=== PATIENT | male | born 1975 | race Caucasian/White ===

== ENCOUNTER 2021-12-25 19:17 | Emergency (ER) | payer OTHER, SELFPAY ==
--- NOTE | ~2021-12-25 | CT_ITS ---
EXAMINATION: CT CHEST, ABDOMEN AND PELVIS WITHOUT CONTRAST CLINICAL INFORMATION: Shortness of breath and significant right-sided pleural effusion noted on a radiograph from earlier today. COMPARISON: Chest radiograph done earlier today at 7:59 PM. TECHNIQUE: Multidetector volumetric imaging was performed from the thoracic inlet through the pubic symphysis without intravenous contrast. Sagittal and coronal reformatted images were obtained on the technologist's workstation. This CT examination was performed using dose optimization techniques as appropriate, variously including the following: *Automated exposure control *Adjustment of mA and/or kV according to patient size (this includes techniques or standardized protocols for targeted exams where dose is matched to indication/reason for exam; i.e. extremities or head) *Use of iterative reconstruction technique DLP: 445 and 811 mGy-cm FINDINGS: CHEST: Lung: Large consolidations with internal air bronchograms involving the entirety of the right lower, almost the majority of the right middle lobe and the inferior segments of the right upper lobe. There is an associated moderate-sized joint effusion which measures higher than simple fluid in attenuation. There are patchy airspace opacities in the left lower lobe. No left-sided pleural effusion. No pneumothorax. The central airways are patent. Mediastinum: Normal heart size with trace amount of pericardial fluid. Mediastinal and hilar lymphadenopathy. For instance, a shared services representative lymph node in the lower pretracheal region measuring approximately 1.8 x 1.5 cm. Epicardial/pericardial lymphadenopathy, for instance measuring 1.9 x 1.1 cm. Normal appearance of the thyroid gland. Pericardium/Pleura: As above, complex right pleural effusion. No pneumothorax. Chest Wall/Axilla: No lymphadenopathy by size criteria. ABDOMEN/PELVIS: Peritoneal Space: No free air or free fluid. Liver, Gallbladder, Biliary Tree: The liver is enlarged measuring 22 cm craniocaudally and there is decreased parenchymal attenuation suggesting hepatic steatosis. Otherwise, the liver is normal in shape without definite focal abnormalities. Normal appearance of the gallbladder. No biliary ductal dilatation. Pancreas: Mild peripancreatic fat stranding, more notable around the pancreatic head. The main pancreatic duct is nondilated. No discrete focal parenchymal abnormalities are identified. Spleen: Unremarkable. Adrenal Glands: Unremarkable. Kidneys and Ureters: Very subtle ill-defined hypoattenuation in the lower pole of the left kidney (14:38). No nephrolithiasis, hydronephrosis or perinephric fat stranding. Bladder: Unremarkable. Gastrointestinal Tract: The stomach and the small bowel are nondilated. Normal appendix. Submucosal fatty deposition throughout the colon is nonspecific and could be associated with patient body habitus. No pericolonic inflammatory changes or evidence of bowel obstruction. Abdominal Wall: Small fat-containing umbilical hernia. Lymphovascular Structures: Prominent periportal and peripancreatic lymph nodes. No lymphadenopathy by size criteria. The aorta is unremarkable. Pelvic Viscera: Unremarkable. Osseus Structures: Indeterminate increased sclerosis at the L5 greater than S1 vertebral bodies. CT/CT abdomen pelvis wo con IMPRESSION: 1. Extensive consolidation of the right lung with an associated moderate size complex joint effusion concerning for a parapneumonic effusion. Less extensive patchy airspace opacities in the left lung. 2. Peripancreatic fat stranding raising the possibility of edematous pancreatitis. Correlate with lipase/amylase levels. 3. Hepatomegaly and hepatic steatosis. 4. Subtle hypoattenuation in the lower pole of the left kidney. Recommend clinical correlation for pyelonephritis and if indicated evaluation with a targeted renal ultrasound. 5. Nonspecific increase in sclerosis of the L5 greater than S1 vertebral bodies. Recommend correlation with tenderness and pain.
--- NOTE | ~2021-12-25 | XR_ITS ---
EXAMINATION: XR CHEST CLINICAL INFORMATION: Dyspnea COMPARISON: Chest x-ray on 12/28/2017 TECHNIQUE: 2 views of the chest were obtained. FINDINGS: Large right pleural effusion with almost complete atelectasis of the lower lobe and middle lobe. No left pleural effusion. The cardiac silhouette is normal. XR/XR chest 2V IMPRESSION: Large right pleural effusion with adjacent atelectasis.
[2021-12-25 19:49] VITALS: BP 102/67; PULSE 108; RESP 18; TEMP 36.7; O2SAT 98; BMI 37.3
--- NOTE | 2021-12-25 19:54 | ECG_ITS ---
Test Reason : DIFFICULTY BREATHING Blood Pressure : / mmHG Vent. Rate : 111 BPM Atrial Rate : 111 BPM P-R Int : 134 ms QRS Dur : 100 ms QT Int : 320 ms P-R-T Axes : 049 038 027 degrees QTc Int : 435 ms Sinus tachycardia with Premature atrial complexes Otherwise normal ECG No previous ECGs available Referred By: Generic ED Physician Electronically Signed By:KAE ECHOLS
[2021-12-25 20:29] LABS: Hematocrit 34.1 % (42.0-52.0); Hemoglobin 11.3 g/dl (14.0-18.0); Mean Corpuscular HGB Conc 33.1 g/dl (31.0-36.0); Mean Corpuscular Hemoglobin 28.1 pg (27.0-33.0); Mean Corpuscular Volume 84.8 fL (80.0-98.0); Mean Platelet Volume 10.8 fL (9.4-12.4); Red Blood Count 4.02 X10*6/uL (4.60-5.80); White Blood Count 12.1 X10*3/uL (4.8-10.8)
[2021-12-25 20:53] LABS: B Type Natriuretic Peptide 114 pg/mL (<100); Troponin-I High Sensitivity < 3.5 ng/L (<3.5-35.0)
[2021-12-25 20:54] LABS: Anion Gap 20 (12-20); Blood Urea Nitrogen 51 mg/dL (9-16); Calcium 7.8 mg/dL (8.4-10.2); Carbon Dioxide 21 mmol/L (22-29); Chloride 95 mmol/L (96-108); Creatinine Clr Calc Pharmacy 49.1; Estimated Glomerular Filt Rate 28; Glucose Random 88 mg/dL (60-115); Potassium 4.5 mmol/L (3.3-5.1); Sodium 131 mmol/L (135-145)
[2021-12-25 20:55] LABS: Band Neutrophils Percent 6 % (3-5); Lymphocytes Absolute Manual 0.4 X10*3/uL (1.2-4.9); Lymphocytes Percent Manual 3 % (20-40); Neutrophils Absolute Manual 11.7 X10*3/uL (2.0-8.3); Neutrophils Percent Manual 91 % (45-73)
[2021-12-25 20:58] LABS: RBC Morphology NOTED
[2021-12-25 20:59] LABS: Microcytosis 1+ (5-14) /OIF
[2021-12-25 21:00] LABS: Platelet Estimate SLIGHTLY DECREASED (NORMAL); Platelet Morphology Comment NORMAL
[2021-12-25 21:01] LABS: Burr Cells 3+ (>5) /OIF; Schistocytes 1+ (0-2) /OIF; Toxic Granulation PRESENT; Toxic Vacuolation PRESENT
[2021-12-25 21:02] LABS: Platelet Count 255 X10*3/uL (160-400)
[2021-12-25 21:10] VITALS: BP 107/62; PULSE 119; RESP 16; TEMP 36.4; O2SAT 92
--- NOTE | 2021-12-25 21:32 | ED.SOB ---
HPI - SOB/Dyspnea General Chief Complaint: Dyspnea Stated Complaint: diff breathing Time Seen by Provider: 12/25/21 21:32 Source: patient Mode of arrival: ambulatory History of Present Illness HPI Narrative: 46-year-old male without significant past medical history states that he has had increasing feelings of fatigue with shortness of breath denies any fever, chills, sore throat, new cough, GI or symptoms. Patient also denies any recent travel, calf swelling and states that he had a COVID-19 test last night at [employer] in that it was negative. Patient states that he works every day and has not had a day off since October in feels ?run down?. Related Data Previous Rx's Medication Instructions Recorded doxycycline hyclate 100 mg capsule 100 mg PO BID 7 Days #14 cap 12/26/21 Allergies Allergy/AdvReac Type Severity Reaction Status Date / Time No Known Allergies Allergy Verified 12/25/21 19:49 [No Known Allergies*] Review of Systems Review of Systems: Pertinent positives and negatives as stated in HPI 10 point review of systems is otherwise negative. PMFSH Past Medical History Source: nursing notes reviewed Medical History Heroin addiction Social History Social History Advance Directives: No Advance Directives Information Provided: Yes Physical Exam Vital Signs: Vital Signs: Last Vital Signs Temp 97.6 F 12/25/21 21:10 Pulse 109 H 12/25/21 23:04 Resp 18 12/25/21 23:04 BP 92/55 L 12/25/21 23:04 Pulse Ox 91 L 12/25/21 23:04 BMI result Body Mass Index 37.3 VITAL SIGNS: Reviewed. GENERAL: Well developed, well nourished, in no acute distress. HEAD: Normocephalic/atraumatic EYES: PERRLA, EOMI EARS: Ext canals without abnormality OROPHARYNX: no oral lesions noted, posterior pharynx clear LUNGS: Good inspiratory effort, coarse rales decreased bibasilar, tachypnea. SpO2<92> CARDIOVASCULAR: Sinus tachycardia without noted murmurs, no JVD or lower extremity edema. ABDOMEN: Soft, non-tender, non-distended with bowel sounds. MUSCULOSKELETAL: No tenderness, deformities, or effusions noted on gross inspection. EXTREMITIES: No cyanosis, clubbing or edema. SKIN: Inspection of the skin reveals no rashes, but appears pale NEUROLOGIC: Alert and oriented x 4. Strength and sensation to light touch were grossly intact x 4. Course Course Course Narrative: 46-year-old male with stage history and clinical presentation concerning for possible lung mass versus pneumonia. 2134: I suspect infection. Patient treated with antibiotics and provided supplemental oxygen. Review of all investigations remains concerning for possible lung mass, patient has DARY. Plans for admission with patient refusal. Patient states he absolutely cannot stay and extensive risks and benefit discussion occurred with patient being counseled on the fact that he is requiring supplemental oxygen to maintain his breathing above 90%. Patient states that he ?feels better?, however it was explained to him that he runs the risk of having such low oxygen levels that he may . Patient states he does not care and that he will not . Patient is alert and oriented x4 and will be discharged home against medical advice. Patient acknowledges full understanding and states that he will return tomorrow. MDM - SOB/Dyspnea Lab Data Result diagrams: 12/25/21 20:22 12/25/21 20:22 Labs: Lab Results 12/25/21 12/25/21 12/25/21 Range/Units 20:22 20:22 20:22 WBC 12.1 H (4.8-10.8) X10*3/uL RBC 4.02 L (4.60-5.80) X10*6/uL Hgb 11.3 L (14.0-18.0) g/dl Hct 34.1 L (42.0-52.0) % MCV 84.8 (80.0-98.0) fL MCH 28.1 (27.0-33.0) pg MCHC 33.1 (31.0-36.0) g/dl RDW 14.0 (11.0-16.0) % Plt Count 255 (160-400) X10*3/uL MPV 10.8 (9.4-12.4) fL Immature Gran % (Auto) Cancelled Neut % (Auto) Cancelled Lymph % (Auto) Cancelled [place] % (Auto) Cancelled Eos % (Auto) Cancelled Baso % (Auto) Cancelled Lymph # (Auto) Cancelled [place] # (Auto) Cancelled Eos # (Auto) Cancelled Baso # (Auto) Cancelled Abs Immat Gran (auto) Cancelled Absolute Neuts (auto) Cancelled Absolute Nucleated RBC 0.000 (0.0-0.012) X10*3/uL Nucleated RBC % (auto) 0.0 (0.0-0.2) /100WBC Neutrophils % (Manual) 91 H (45-73) % Band Neutrophils % 6 H (3-5) % Lymphocytes % (Manual) 3 L (20-40) % Abs Neuts (Manual) 11.7 H (2.0-8.3) X10*3/uL Lymphocytes # (Manual) 0.4 L (1.2-4.9) X10*3/uL Toxic Granulation PRESENT Toxic Vacuolation PRESENT Platelet Estimate SLIGHTLY DECREASED (NORMAL) Plt Morphology Comment NORMAL RBC Morphology NOTED Microcytosis 1+ (5-14) /OIF Ade Cells 3+ (>5) /OIF Schistocytes 1+ (0-2) /OIF Sodium 131 L (135-145) mmol/L Potassium 4.5 (3.3-5.1) mmol/L Chloride 95 L (96-108) mmol/L Carbon Dioxide 21 L (22-29) mmol/L Anion Gap 20 (12-20) BUN 51 H (9-16) mg/dL Creatinine 2.44 H (0.5-1.4) mg/dL Estim Creat Clear Calc 49.1 Estimated GFR 28 Random Glucose 88 (60-115) mg/dL Lactic Acid (0.5-2.0) mmol/L Calcium 7.8 L (8.4-10.2) mg/dL Lactate Dehydrogenase 461 H (118-273) U/L Troponin I High Sens < 3.5 (<3.5-35.0) ng/L C-Reactive Protein 38.35 H (< or = 0.50) mg/dL B-Natriuretic Peptide 114 H (<100) pg/mL 12/25/21 Range/Units 21:23 WBC (4.8-10.8) X10*3/uL RBC (4.60-5.80) X10*6/uL Hgb (14.0-18.0) g/dl Hct (42.0-52.0) % MCV (80.0-98.0) fL MCH (27.0-33.0) pg MCHC (31.0-36.0) g/dl RDW (11.0-16.0) % Plt Count (160-400) X10*3/uL MPV (9.4-12.4) fL Immature Gran % (Auto) Neut % (Auto) Lymph % (Auto) [place] % (Auto) Eos % (Auto) Baso % (Auto) Lymph # (Auto) [place] # (Auto) Eos # (Auto) Baso # (Auto) Abs Immat Gran (auto) Absolute Neuts (auto) Absolute Nucleated RBC (0.0-0.012) X10*3/uL Nucleated RBC % (auto) (0.0-0.2) /100WBC Neutrophils % (Manual) (45-73) % Band Neutrophils % (3-5) % Lymphocytes % (Manual) (20-40) % Abs Neuts (Manual) (2.0-8.3) X10*3/uL Lymphocytes # (Manual) (1.2-4.9) X10*3/uL Toxic Granulation Toxic Vacuolation Platelet Estimate (NORMAL) Plt Morphology Comment RBC Morphology Microcytosis /OIF [place] Cells /OIF Schistocytes /OIF Sodium (135-145) mmol/L Potassium (3.3-5.1) mmol/L Chloride (96-108) mmol/L Carbon Dioxide (22-29) mmol/L Anion Gap (12-20) BUN (9-16) mg/dL Creatinine (0.5-1.4) mg/dL Estim Creat Clear Calc Estimated GFR Random Glucose (60-115) mg/dL Lactic Acid 1.2 (0.5-2.0) mmol/L Calcium (8.4-10.2) mg/dL Lactate Dehydrogenase (118-273) U/L Troponin I High Sens (<3.5-35.0) ng/L C-Reactive Protein (< or = 0.50) mg/dL B-Natriuretic Peptide (<100) pg/mL ECG Data Attestation: I personally reviewed and interpreted this ECG as follows: Prior ECG tracings: not available for review Interpretation: Sinus tachycardia, HR-111, PACs, no STEMI, NH/QRS/QTC are within normal limits. Discharge Plan Discharge Clinical Impression: SOB (shortness of breath), Pleural effusion, PNA (pneumonia) Patient Disposition: Left Against Medical Advice Instructions: Pleural Effusion (ED), Pneumonia (ED), Shortness of Breath (ED) Additional Instructions: 1. Resume any in all prescribed home medications. 2. Please return to the emergency room tomorrow regardless if you signed out against medical advice tonight. This is in the best interest for you and your health. Prescriptions: New doxycycline hyclate 100 mg capsule 100 mg PO BID 7 Days Qty: 14 0RF Referrals: Lashell Gilman MD [Physician] - 2 days Micah Childress MD [Physician] - 2 days Amarilis Lacey MD [Physician] - 2 days Carley Ambriz CNP [Nurse Practitioner] - 2 days Stand Alone Forms: Against Medical Advice
[2021-12-25 21:44] LABS: Lactic Acid 1.2 mmol/L (0.5-2.0)
[2021-12-25] MEDS: levoFLOXacin/D5W 750 MG/150 ML PIGGYBACK 100 MG IV (22:18)
[2021-12-25] MEDS: Albuterol Sulfate (0.083%) 2.5 MG/3 ML VIAL.NEB INHALE (22:29)
[2021-12-25 22:31] VITALS: PULSE 110; RESP 18; O2SAT 90
[2021-12-25 22:55] LABS: Influenza A PCR NEGATIVE (Negative); Influenza B PCR NEGATIVE (Negative); Resp Syncy Virus RNA Qual PCR NEGATIVE (Negative); SARS COV2 PCR INHOUSE POSITIVE (Negative)
[2021-12-25 23:04] VITALS: BP 92/55; PULSE 109; RESP 18; O2SAT 91
--- NOTE | 2021-12-25 23:23 | PM.IMHP ---
History of Present Illness Date of Service: 12/25/21 Chief Complaint: Shortness of breath 46-year-old male with a past medical history of opiate dependence on Suboxone presented to the hospital with a chief complaint of shortness of breath. Patient reported that since last Wednesday he has been having shortness of breath which has been gradually worsening especially on exertion. Reported that on Wednesday he felt chills and rigors followed by he felt tired and exhausted; and since then he has been having shortness of breath which has been gradually worsening. During the same. He also had cough and greenish to yellow sputum production. Mentioned he has been trying cough medicine at home with no significant improvement. He went to the urgent care yesterday who suggested him to go to the ER for further evaluation. Patient denies any recent travel or sick contacts. Denies any cough pain. Denies any travel outside [place] Mentions that he does not drink water well. He only drinks coffee in the morning and energy drinks. Especially over the past couple days. And a lately noted he has been increasingly thirsty. Denies any polyuria. Denies any chest pain or palpitations. Denies any GI symptoms. Review of all other systems is negative except mentioned above ER course: Per ER team patient noted to be short of breath; lungs fairly clear but significantly diminished on the right side; chest x-ray showed large right pleural effusion; CTA chest and CT abdomen Will or being ordered. Patient was saturating 91% on room air. Placed on supplemental oxygen. On labs noted to have DARY of 2.4. [facility] Medical History Heroin addiction Pertinent family history: Denies any significant family history concerning for heart disease or cancers. Social History Advance Directives: No Advance Directives Information Provided: Yes Meds Allergies Allergy/AdvReac Type Severity Reaction Status Date / Time No Known Allergies Allergy Verified 12/25/21 19:49 [No Known Allergies*] Active Medications: Current Medications Acetaminophen (Acetaminophen 325 Mg Tablet) 650 mg PO Q6H PRN PRN Reason: Pain, Mild (Pain Scale 1-3) Albuterol/Ipratropium (Albuterol/Iprat 2.5/0.5mg 3 Ml Ampul.Neb) 3 ml INHALE RQ4H PRN PRN Reason: Shortness of Breath/Wheezing Enoxaparin Sodium (Enoxaparin Sodium 40 Mg/0.4 Ml Syringe) 40 mg SUBCUT Q24H CAIT Piperacillin Sod/Tazobactam (Sod 3.375 gm/ Sodium Chloride) 50 mls @ 100 mls/hr IV Q6H CAIT Melatonin (Melatonin 3 Mg Tablet) 6 mg PO BEDTIME PRN PRN Reason: Insomnia Morphine Sulfate (Morphine Sulfate 4 Mg/Ml Cartridge) 1 mg IVPUSH Q4H PRN; Protocol PRN Reason: Pain, SOB Senna (Sennosides 8.6 Mg Tablet) 17.2 mg PO BEDTIME PRN PRN Reason: Constipation Sodium Chloride (0.9 % Sodium Chloride Flush 3 Ml Syringe) 3 ml IVFLUSH QSHIFT CAIT Physical Exam Vital Signs and Narrative: Vital Signs: Last Vital Signs Temp 97.6 F 12/25/21 21:10 Pulse 109 H 12/25/21 23:04 Resp 18 12/25/21 23:04 BP 92/55 L 12/25/21 23:04 Pulse Ox 91 L 12/25/21 23:04 BMI result Body Mass Index 37.3 Gen: Appears be in no acute distress . Breathing comfortably on room air. Able to finish sentences without any discomfort. HEENT: NCAT, Moist mucosa. Pulmonary: Clear breath sounds but significantly diminished on the right side in mid and lower lobes. CVS: Normal S1-S2 Abdomen: BS+, Soft, Nontender Extremities: Warm well perfused Neuro: Alert and awake. Grossly nonfocal Results Labs CBC and Chem 7: 12/25/21 20:22 12/25/21 20:22 Labs: Laboratory Results - last 24 hr 12/25/21 12/25/21 12/25/21 20:22 20:22 20:22 MCV 84.8 MCH 28.1 MCHC 33.1 RDW 14.0 Plt Count 255 MPV 10.8 Immature Gran % (Auto) Cancelled Neut % (Auto) Cancelled Lymph % (Auto) Cancelled [place] % (Auto) Cancelled Eos % (Auto) Cancelled Baso % (Auto) Cancelled Lymph # (Auto) Cancelled [place] # (Auto) Cancelled Eos # (Auto) Cancelled Baso # (Auto) Cancelled Abs Immat Gran (auto) Cancelled Absolute Neuts (auto) Cancelled Absolute Nucleated RBC 0.000 Nucleated RBC % (auto) 0.0 Neutrophils % (Manual) 91 H Band Neutrophils % 6 H Lymphocytes % (Manual) 3 L Abs Neuts (Manual) 11.7 H Lymphocytes # (Manual) 0.4 L Toxic Granulation PRESENT Toxic Vacuolation PRESENT Platelet Estimate SLIGHTLY DECREASED Plt Morphology Comment NORMAL RBC Morphology NOTED Microcytosis 1+ (5-14) [place] Cells 3+ (>5) Schistocytes 1+ (0-2) Anion Gap 20 Estim Creat Clear Calc 49.1 Estimated GFR 28 Random Glucose 88 Lactic Acid Calcium 7.8 L C-Reactive Protein 38.34 H B-Natriuretic Peptide 114 H 12/25/21 21:23 MCV MCH MCHC RDW Plt Count MPV Immature Gran % (Auto) Neut % (Auto) Lymph % (Auto) [place] % (Auto) Eos % (Auto) Baso % (Auto) Lymph # (Auto) [place] # (Auto) Eos # (Auto) Baso # (Auto) Abs Immat Gran (auto) Absolute Neuts (auto) Absolute Nucleated RBC Nucleated RBC % (auto) Neutrophils % (Manual) Band Neutrophils % Lymphocytes % (Manual) Abs Neuts (Manual) Lymphocytes # (Manual) Toxic Granulation Toxic Vacuolation Platelet Estimate Plt Morphology Comment RBC Morphology Microcytosis [place] Cells Schistocytes Anion Gap Estim Creat Clear Calc Estimated GFR Random Glucose Lactic Acid 1.2 Calcium C-Reactive Protein B-Natriuretic Peptide Imaging Radiologist's Impressions: Impressions Chest X-Ray 12/25/21 20:00 IMPRESSION: Large right pleural effusion with adjacent atelectasis. Assessment and Plan (1) SOB (shortness of breath): Status: Acute (2) Pleural effusion: Status: Acute (3) PNA (pneumonia): Status: Acute Plan 46-year-old male with no significant past medical history presented to the hospital with a chief complaint of shortness of breath/ cough/ sputum production. Noted to have pleural effusion likely in setting of pneumonia. Admitted for further management. Pleural effusion: Likely in setting of pneumonia. Patient reports cough and yellowish to green sputum production. Complains of dyspnea on exertion. Noted to have a large right pleural effusion. will request day hospitalist to follow up with IR consult for possible diagnostic/therapeutic tap in a.m. Patient currently saturating 91% on room air. Will place the patient on supplemental oxygen. Currently Not in respiratory distress. Will keep the patient on IV vancomycin and Zosyn empirically Id consult/Pulm consult proBNP within normal limits. Echocardiogram. EKG nonischemic initial troponin negative. Follow-up troponin pending CT chest/ abdomen pelvis- final read pending DARY: Patient's creatinine on presentation was 2.4. Patient does mention that he has not been hydrating enough. Will obtain urine lytes. Gentle IV fluids. nephrology follow-up History of opiate dependence: Patient on Suboxone. Addiction Medicine consult. DVT prophylaxis: Lovenox Code status: Full code Quality Stroke Does the patient have a stroke diagnosis?: No VTE Prior VTE?: No VTE Risk Level:: Medical - moderate - high VTE Device Contraindication: Treatment Not Indicated VTE Drug Contraindication: N/A - Med Ordered
[2021-12-25 23:46] LABS: Lactate Dehydrogenase 461 U/L (118-273)
[2021-12-25 23:51] LABS: C Reactive Protein 38.35 mg/dL (< or = 0.50)
--- NOTE | 2021-12-26 00:07 | PM.EVENT ---
Event Note Date of Service: 12/26/21 Event Note: AMA note: ER physician wanted to admit the patient for right-sided pleural effusion with mild hypoxia mona
[2021-12-26 00:13] LABS: Lipase < 4 U/L (8-78)
[2021-12-26] MEDS: Piperacillin Sodium/Tazobactam 2.25 GM in 0.9 % Sodium Chloride 50 ML IV (01:23)
--- NOTE | 2021-12-26 01:35 | PC.NURSE ---
I assumed nursing care of this pt upon his arrival to bed 15. The pt presented to the ED with c/o fatigue, cough, dyspnea. he states I feel like I did when I had pneumonia. He appears mildly pale, clammy, and mildly drowsy - a symptom he attributes to being someone who takes Methadone, prescribed. He is alert, oriented x 3, makes eye contact with Rn and is calm and cooperative. Respirations are non-labored, there is no cyanosis, he speaks in full sentences. His room air sat's are consistently 90%. His sat's improve to 95-97% with 2L nasal cannula. he denies chest pain. No nausea, No vomiting. He denies any change in his bowel or bladder patterns. He ambulates while in the ED independently and with steady gait. The pt was noted to have a significant pneumonia and was notified that he has this, as well as an DARY and hypoxia. Hre insisted that he could not stay in the hospital. I had a lengthy discussion with devin about the risks of leaving AMA, and I thoroughly explained to my best ability the findings on xray and bloodwork. 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 he insists, as well, that he will return tomorrow for further treatment. He agreed to allow Levaquin and Zosyn IV ABX complete prior to departure.. he signed AMA paperwork, witnesses as well.
== END 2021-12-26 01:43 | disposition left against medical advice (07) ==
PROVIDERS: Hospitalist; Emergency Provider Student in an Organized Health Care Education/Training Program
DX: U07.1 COVID-19 (principal); J12.82 Pneumonia due to coronavirus disease 2019; J91.8 Pleural effusion in other conditions classified elsewhere; R78.81 Bacteremia; R06.02 Shortness of breath; R00.0 Tachycardia, unspecified
CPT/HCPCS: 0241U; 36415; 71046; 71250; 74176; 80048; 83605; 83615; 83690; 83880; 84484; 85007; 85027; 86140; 87040; 87077; 87186; 87205; 93005; 94640; 96365; 99284; J1956; J2543

== ENCOUNTER 2021-12-26 12:34 | Inpatient (IN) | payer OTHER, SELFPAY ==
--- NOTE | ~2021-12-26 | NM_ITS ---
EXAMINATION: PULMONARY PERFUSION STUDY CLINICAL INFORMATION: COVID positive, dyspnea and elevated d-dimer. COMPARISON: Chest radiograph done earlier today at 2:17 PM. TECHNIQUE: The patient received 2.8 mCi Tc-99m MAA intravenously and a 6-view perfusion study was performed. FINDINGS: There is homogeneous distribution of activity in the left lung with no segmental perfusion defects, and a very small focal anatomic appearing defect adjacent to the cardiac silhouette. There is a large area of decreased perfusion involving the right lower and middle lobes, matching the regions of airspace opacities and moderate right pleural effusion noted on the chest radiograph from earlier today. NM/NM pul perfusion IMPRESSION: Large area of nonsegmental perfusion defect in the right lung corresponding to the airspace disease and pleural effusion noted on same day radiograph. This corresponds to a low probability (less or equal to 19%) for pulmonary emboli according to the updated PIOPED criteria. Homogeneous activity in the left lung.
--- NOTE | ~2021-12-26 | XR_ITS ---
EXAMINATION: XR CHEST CLINICAL INFORMATION: Dyspnea COMPARISON: Previous chest x-ray and chest CT 12/25/2020 TECHNIQUE: Frontal view of the chest was obtained. FINDINGS: The cardiac and mediastinal contours are stable. There is diffuse dense consolidation in the right lung sparing the right lung apex. This does not appear appreciably changed from yesterday's exam. The left lung is clear. There may be a small right pleural effusion. There is no left pleural effusion. There is no pneumothorax. There are mild degenerative changes of the spine. XR/XR chest 1V IMPRESSION: No change in dense consolidation in the right lung sparing the right lung apex and question small right pleural effusion from yesterday's exam.
[2021-12-26 12:48] VITALS: BP 101/61; PULSE 106; RESP 18; TEMP 36.8; O2SAT 93; BMI 32.1
--- NOTE | 2021-12-26 14:05 | ECG_ITS ---
Test Reason : dyspena Blood Pressure : / mmHG Vent. Rate : 101 BPM Atrial Rate : 101 BPM P-R Int : 136 ms QRS Dur : 102 ms QT Int : 338 ms P-R-T Axes : 059 037 030 degrees QTc Int : 438 ms Sinus tachycardia Otherwise normal ECG When compared with ECG of 25-DEC-2021 20:07, No significant changes seen Referred By: Tiffany Qiu Electronically Signed By:KAE ECHOLS
--- NOTE | 2021-12-26 14:07 | ED_ITS ---
HPI - General Adult General Chief complaint: General Medical Stated complaint: bacteria in blood Time Seen by Provider: 12/26/21 13:31 Source: patient Mode of arrival: ambulatory Limitations: no limitations History of Present Illness HPI narrative: seen yesterday plan was to be admitted but left AMA grew 2/[address] chest confirmed pneumonia. Was sent out with PO doxycycline. Called to come back to the ED. Refused IV vancomycin and IV zosyn while in the ED. Cr found to be 2.44 DARY. PCR confirmed COVID + he also was hypoxic in the ED per notes. Patient is unvaccinated. 1.? Extensive consolidation of the right lung with an associated moderate size complex joint effusion concerning for a parapneumonic effusion. Less extensive patchy airspace opacities in the left lung. ? 2.? Peripancreatic fat stranding raising the possibility of edematous pancreatitis. Correlate with lipase/amylase levels MD complaint: fatigue, shortness of breath, sweats Onset (ago): day(s) (WednesdayDecember 19) Location: chest Severity: moderate Quality: aching Pain Consistency: constant Relieving factors: none Exacerbating factors: other (patient reports feeling weak, short of breath, cough, fevers, chills, sweats, poor PO intake) Associated symptoms: cough, fever/chills, headaches, loss of appetite, malaise, nausea/vomiting, shortness of breath and weakness Treatments prior to arrival: other (took two doses of doxycycline) Related Data Home Medications Medication Instructions Recorded Confirmed buprenorphine 8 mg-naloxone 2 mg 2 strip SUBLINGUAL DAILY 12/26/21 12/26/21 sublingual film Allergies Allergy/AdvReac Type Severity Reaction Status Date / Time No Known Allergies Allergy Verified 12/25/21 19:49 [No Known Allergies*] Review of Systems Review of Systems: Constitutional : pos Fever, pos Chills, pos sweats ENT/Mouth : No sore throat, No Rhinorrhea, No Swallowing Difficulty Eyes: No Eye Pain, No Swelling, No Redness Cardiovascular : No Chest Pain, positive SOB, No Orthopnea, no Edema Respiratory : pos Cough, No Sputum, No Wheezing, positive dyspnea Gastrointestinal : pos Nausea, No Vomiting, No Diarrhea, No abdominal Pain, No Hematochezia, No Melena Genitourinary : No Dysuria, No Urinary Frequency, No Hematuria Musculoskeletal : No joint pain, No Myalgias Skin : No Skin Lesions, No rash Neuro : pos Weakness, No Numbness, No Dizziness, No Headache Psych : No Anxiety/Panic, No Depression Heme/Lymph: No Bruising, No Lymphadenopathy Endocrine : No Polyuria, No Polydipsia All other systems reviewed and are negative [facility] Past Medical History Attestation statement: The following information was validated with the patient. Medical History Heroin addiction Social History Social History (Updated 12/26/21 @ 14:31 by Tiffany Qiu DO) Household Members: Significant Other Housing: Apartment Do you presently have visiting nurse or other home services: No Alcohol intake: never Patient Tobacco Use Status: Never used Tobacco Use of substances other than those prescribed or required for medical reasons: Yes Substance Use Type: Former Substance User Substance Use Type Other:: suboxone Substance Use Frequency: Daily Substance Use Frequency Other:: Has not used in years Currently Displaying Signs/Symptoms of Drug Intoxication Withdrawal: No Any prior treatment program specific to substance use: No Have you been hit, kicked, punched, or otherwise hurt by someone within the past year? If so, by whom?: No Do you feel safe in your current relationship?: Yes Is there a partner from a previous relationship who is making you feel unsafe now?: No Are you made to feel afraid or neglected: No Advance Directives: Yes Advance Directives Information Provided: Yes Advance Directives on File: No Advance Directives Date on File: 12/26/21 Do you have thoughts of harming others: None Do you have a plan to hurt others: No Plan Recently lost weight without trying: No Eating poorly because of decreased appetite: Yes Nutrition Risks: Poor intake 0-25% >4 days Poor oral hygiene: No Physical Exam ED Vital Signs: Vital Signs - 24 hr 12/26/21 12:48 12/26/21 14:27 Temperature 98.2 F 98 F Pulse Rate 106 H 97 Respiratory Rate 18 18 Blood Pressure 101/61 128/71 Pulse Oximetry 93 95 BMI result Body Mass Index 32.1 Appearance: Alert. Oriented X3. Mild acute distress. Eyes: Pupils equal, round and reactive to light. ENT: Pharynx normal. Neck: Normal inspection. Neck supple. CVS: tachycardic heart rate and rhythm. Pulses normal. Respiratory: No respiratory distress. Breath sounds nvery dimished rales noted on R side Abdomen: Soft and non-tender. Skin: Skin warm and diaphoretic. pale skin color. Normal skin turgor. Extremities: No lower extremity edema. No calf ttp Neuro: Oriented X 3. No motor deficit. No sensory deficit. Course Course Course Narrative: ddimer elevated VQ scan ordered given DARY Medical Decision Making MDM Narrative Medical decision making narrative: 46 yo male with no PMH other than prior opiate use and he denies active use reports feeling weak, short of breath, malaise, cough fevers chills - dx with pneumonia / DARY yesterday started on doxycycline after leaving AMA PCR + for COVID, comes back after blood cultures 2/2 GPC in chains. At this time he has WBC count bandemia and bacteremia in addition to COVID + status (unvaccinated) today is day 8 of symptoms. Will need repeat labs, cultures, CXR, IV vancomycin/zosyn, monitor O2 to assess need for steroids. He agrees to stay at this time. Lab Data Result diagrams: 12/26/21 14:51 12/26/21 14:51 Labs: Lab Results 12/26/21 12/26/21 12/26/21 Range/Units 14:51 14:51 14:51 WBC 16.7 H (4.8-10.8) X10*3/uL RBC 3.93 L (4.60-5.80) X10*6/uL Hgb 11.1 L (14.0-18.0) g/dl Hct 33.3 L (42.0-52.0) % MCV 84.7 (80.0-98.0) fL MCH 28.2 (27.0-33.0) pg MCHC 33.3 (31.0-36.0) g/dl RDW 14.2 (11.0-16.0) % Plt Count 279 (160-400) X10*3/uL MPV 11.1 (9.4-12.4) fL Immature Gran % (Auto) Cancelled Neut % (Auto) Cancelled Lymph % (Auto) Cancelled [place] % (Auto) Cancelled Eos % (Auto) Cancelled Baso % (Auto) Cancelled Lymph # (Auto) Cancelled [place] # (Auto) Cancelled Eos # (Auto) Cancelled Baso # (Auto) Cancelled Abs Immat Gran (auto) Cancelled Absolute Neuts (auto) Cancelled Absolute Nucleated RBC 0.000 (0.0-0.012) X10*3/uL Nucleated RBC % (auto) 0.0 (0.0-0.2) /100WBC Neutrophils % (Manual) 87 H (45-73) % Band Neutrophils % 10 H (3-5) % Lymphocytes % (Manual) 3 L (20-40) % Abs Neuts (Manual) 16.2 H (2.0-8.3) X10*3/uL Lymphocytes # (Manual) 0.5 L (1.2-4.9) X10*3/uL Toxic Granulation PRESENT Toxic Vacuolation PRESENT Dohle Bodies PRESENT Platelet Estimate NORMAL (NORMAL) Plt Morphology Comment NORMAL RBC Morphology NOTED Polychromasia 1+ (0-2) /OIF Ade Cells 1+ (0-2) /OIF Schistocytes 1+ (0-2) /OIF PT (9.9-13.0) SEC INR (0.9-1.1) D-Dimer High Sensitivty NG/ML VBG pH (7.32-7.43) VBG pCO2 mmHg VBG pO2 mmHg VBG HCO3 (22-26) mmol/L VBG O2 Saturation % VBG Base Excess mmol/L Sodium 130 L (135-145) mmol/L Potassium 3.9 (3.3-5.1) mmol/L Chloride 96 (96-108) mmol/L Carbon Dioxide 20 L (22-29) mmol/L Anion Gap 18 (12-20) BUN 59 H (9-16) mg/dL Creatinine 2.44 H (0.5-1.4) mg/dL Estim Creat Clear Calc 45.5 Estimated GFR 28 Random Glucose 81 (60-115) mg/dL Lactic Acid (0.5-2.0) mmol/L Calcium 7.9 L (8.4-10.2) mg/dL Magnesium 2.6 (1.6-2.6) mg/dL Ferritin 4906 H (20-250) ng/mL Total Bilirubin 3.6 H (0.0-1.0) mg/dL Direct Bilirubin 3.0 H (0.0-0.5) mg/dL AST 102 H (5-37) U/L ALT 85 H (0-40) U/L Alkaline Phosphatase 208 H (39-117) U/L Lactate Dehydrogenase 486 H (118-273) U/L Total Creatine Kinase 56 (38-174) U/L C-Reactive Protein 37.96 H (< or = 0.50) mg/dL Total Protein 5.4 L (6.5-8.0) g/dL Albumin 2.6 L (3.5-5.0) g/dL Lipase 4 L (8-78) U/L 12/26/21 12/26/21 12/26/21 Range/Units 14:51 14:52 14:55 WBC (4.8-10.8) X10*3/uL RBC (4.60-5.80) X10*6/uL Hgb (14.0-18.0) g/dl Hct (42.0-52.0) % MCV (80.0-98.0) fL MCH (27.0-33.0) pg MCHC (31.0-36.0) g/dl RDW (11.0-16.0) % Plt Count (160-400) X10*3/uL MPV (9.4-12.4) fL Immature Gran % (Auto) Neut % (Auto) Lymph % (Auto) [place] % (Auto) Eos % (Auto) Baso % (Auto) Lymph # (Auto) [place] # (Auto) Eos # (Auto) Baso # (Auto) Abs Immat Gran (auto) Absolute Neuts (auto) Absolute Nucleated RBC (0.0-0.012) X10*3/uL Nucleated RBC % (auto) (0.0-0.2) /100WBC Neutrophils % (Manual) (45-73) % Band Neutrophils % (3-5) % Lymphocytes % (Manual) (20-40) % Abs Neuts (Manual) (2.0-8.3) X10*3/uL Lymphocytes # (Manual) (1.2-4.9) X10*3/uL Toxic Granulation Toxic Vacuolation Dohle Bodies Platelet Estimate (NORMAL) Plt Morphology Comment RBC Morphology Polychromasia /OIF Ade Cells /OIF Schistocytes /OIF PT 14.8 H (9.9-13.0) SEC INR 1.3 H (0.9-1.1) D-Dimer High Sensitivty 1401 NG/ML VBG pH 7.35 (7.32-7.43) VBG pCO2 37 mmHg VBG pO2 59 mmHg VBG HCO3 21 L (22-26) mmol/L VBG O2 Saturation 84.0 % VBG Base Excess -3.8 mmol/L Sodium (135-145) mmol/L Potassium (3.3-5.1) mmol/L Chloride (96-108) mmol/L Carbon Dioxide (22-29) mmol/L Anion Gap (12-20) BUN (9-16) mg/dL Creatinine (0.5-1.4) mg/dL Estim Creat Clear Calc Estimated GFR Random Glucose (60-115) mg/dL Lactic Acid 0.9 (0.5-2.0) mmol/L Calcium (8.4-10.2) mg/dL Magnesium (1.6-2.6) mg/dL Ferritin (20-250) ng/mL Total Bilirubin (0.0-1.0) mg/dL Direct Bilirubin (0.0-0.5) mg/dL AST (5-37) U/L ALT (0-40) U/L Alkaline Phosphatase (39-117) U/L Lactate Dehydrogenase (118-273) U/L Total Creatine Kinase (38-174) U/L C-Reactive Protein (< or = 0.50) mg/dL Total Protein (6.5-8.0) g/dL Albumin (3.5-5.0) g/dL Lipase (8-78) U/L ECG Data Attestation: I personally reviewed and interpreted this ECG as follows: Interpretation: Rate: 101 Rhythm: sinus tachycardia [place]: normal Normal P waves. Normal GRACE. Normal QRS complex. ST T wave : normal no JESSICA qTC: normal prior studies: no acute ischemia The study has been interpreted contemporaneously by me. . Discharge Plan Discharge Clinical Impression: Pleural effusion, Bacteremia, COVID-19 PNA (pneumonia) Qualifiers: Pneumonia type: due to unspecified organism Laterality: bilateral Lung location: unspecified part of lung Qualified Code(s): J18.9 - Pneumonia, unspecified organism Leukocytosis Qualifiers: Leukocytosis type: unspecified Qualified Code(s): D72.829 - Elevated white blood cell count, unspecified Patient Disposition: Admitted As Inpatient
[2021-12-26 14:27] VITALS: BP 128/71; PULSE 97; RESP 18; TEMP 36.6; O2SAT 95
--- NOTE | 2021-12-26 14:35 | PHA.MEDREC ---
Pharmacy Consult ? Medication Reconciliation Pharmacy has completed the medication reconciliation. Patient only take suboxone. Ariadna Layne, PharmD
[2021-12-26] MEDS: 0.9 % Sodium Chloride 500 ML IV (14:56)
[2021-12-26] MEDS: Piperacillin Sodium/Tazobactam 3.375 GM in 0.9 % Sodium Chloride 50 ML IV (15:00)
[2021-12-26 15:02] LABS: Hematocrit 33.3 % (42.0-52.0); Hemoglobin 11.1 g/dl (14.0-18.0); Mean Corpuscular HGB Conc 33.3 g/dl (31.0-36.0); Mean Corpuscular Hemoglobin 28.2 pg (27.0-33.0); Mean Corpuscular Volume 84.7 fL (80.0-98.0); Mean Platelet Volume 11.1 fL (9.4-12.4); Platelet Count 279 X10*3/uL (160-400); Red Blood Count 3.93 X10*6/uL (4.60-5.80); Red Cell Distribution Width 14.2 % (11.0-16.0); White Blood Count 16.7 X10*3/uL (4.8-10.8)
[2021-12-26 15:02] LABS: Venous Blood Gas Refer to POC result
[2021-12-26 15:02] LABS: VBG Base Excess -3.8 mmol/L; VBG HCO3 21 mmol/L (22-26); VBG pCO2 37 mmHg; VBG pH 7.35 (7.32-7.43); VBG pO2 59 mmHg
[2021-12-26 15:07] LABS: INTERNATIONAL NORM RATIO 1.3 (0.9-1.1); Prothrombin Time 14.8 SEC (9.9-13.0)
[2021-12-26 15:09] LABS: D Dimer High Sensitivity 1401 NG/ML
[2021-12-26 15:10] LABS: Lactic Acid 0.9 mmol/L (0.5-2.0)
[2021-12-26 15:25] LABS: Blood Urea Nitrogen 59 mg/dL (9-16); Total Protein 5.4 g/dL (6.5-8.0)
[2021-12-26 15:26] LABS: Alanine Aminotransferase 85 U/L (0-40); Albumin Level 2.6 g/dL (3.5-5.0); Alkaline Phosphatase 208 U/L (39-117); Anion Gap 18 (12-20); Aspartate Amino Transferase 102 U/L (5-37); Bilirubin Total 3.6 mg/dL (0.0-1.0); Calcium 7.9 mg/dL (8.4-10.2); Carbon Dioxide 20 mmol/L (22-29); Chloride 96 mmol/L (96-108); Creatinine Clr Calc Pharmacy 45.5; Estimated Glomerular Filt Rate 28; Glucose Random 81 mg/dL (60-115); Lipase 4 U/L (8-78); Magnesium 2.6 mg/dL (1.6-2.6); Potassium 3.9 mmol/L (3.3-5.1); Sodium 130 mmol/L (135-145)
[2021-12-26 15:28] LABS: Lactate Dehydrogenase 486 U/L (118-273)
[2021-12-26 15:36] LABS: C Reactive Protein 37.96 mg/dL (< or = 0.50)
[2021-12-26 16:34] LABS: Band Neutrophils Percent 10 % (3-5); Lymphocytes Absolute Manual 0.5 X10*3/uL (1.2-4.9); Lymphocytes Percent Manual 3 % (20-40); Neutrophils Absolute Manual 16.2 X10*3/uL (2.0-8.3); Neutrophils Percent Manual 87 % (45-73); RBC Morphology NOTED
[2021-12-26 16:35] LABS: Toxic Granulation PRESENT
[2021-12-26 16:36] LABS: Burr Cells 1+ (0-2) /OIF; Dohle Bodies PRESENT; Polychromasia 1+ (0-2) /OIF; Schistocytes 1+ (0-2) /OIF; Toxic Vacuolation PRESENT
[2021-12-26 16:37] LABS: Platelet Estimate NORMAL (NORMAL); Platelet Morphology Comment NORMAL
[2021-12-26] MEDS: vancomycin HCL 1,000 MG, vancomycin HCL 750 MG in 0.9 % Sodium Chloride 500 ML 267.5 MG IV (16:46)
--- NOTE | 2021-12-26 16:47 | PM.IMHP ---
History of Present Illness Date of Service: 12/26/21 Chief Complaint: Shortness of breath 46 year male with opioid dependence who who was seen in the ED yesterday with sob, fatigue that has been ongoing for nearly a week a had been seen at an urgent care clinic where he was found to have negaive covid. Work up here was noted for + covid by PCR, elevated WBC and CXR showed right sided pneumonia, lab work further showed DARY with creatinine of 2.44. Admission was advised and yet he left AMA sitting that he had a business that he had to attend to. He is not hypoxic. He returns to ED due to persitent symptoms and lab blood culture from the yesterday showing gram positive cocci bacteremia 2/. He's given vancomycin and this time when advised to stay, he's agreable. Creatine is unchaged at 2.44, WBC is higher from yesterday at 16 up from 12. No fever or chilss, +SOB. He is not vaccinated for covid Review of Systems Review of Systems: Gen: no fever Resp: +SOB, +cough cough CV: no chest, no [place], no leg edema GI: No n/v, no abd pain Neuro: No confusion Yes all other systems are reviewed and are negative [facility] Medical History Heroin addiction Social History (Updated 12/26/21 @ 14:31 by Tiffany Qiu DO) Household Members: Significant Other Housing: Apartment Do you presently have visiting nurse or other home services: No Alcohol intake: never Patient Tobacco Use Status: Never used Tobacco Use of substances other than those prescribed or required for medical reasons: Yes Substance Use Type: Former Substance User Substance Use Type Other:: suboxone Substance Use Frequency: Daily Substance Use Frequency Other:: Has not used in years Currently Displaying Signs/Symptoms of Drug Intoxication Withdrawal: No Any prior treatment program specific to substance use: No Have you been hit, kicked, punched, or otherwise hurt by someone within the past year? If so, by whom?: No Do you feel safe in your current relationship?: Yes Is there a partner from a previous relationship who is making you feel unsafe now?: No Are you made to feel afraid or neglected: No Advance Directives: Yes Advance Directives Information Provided: Yes Advance Directives on File: No Advance Directives Date on File: 12/26/21 Do you have thoughts of harming others: None Do you have a plan to hurt others: No Plan Recently lost weight without trying: No Eating poorly because of decreased appetite: Yes Nutrition Risks: Poor intake 0-25% >4 days Poor oral hygiene: No Meds Allergies Allergy/AdvReac Type Severity Reaction Status Date / Time No Known Allergies Allergy Verified 12/25/21 19:49 [No Known Allergies*] Active Medications: Current Medications Vancomycin HCl 1,000 mg/Vancomycin HCl 750 mg/ Sodium Chloride 535 mls @ 267.5 mls/hr IV ONCE ONE Stop: 12/26/21 16:59 Last Admin: 12/26/21 16:46 Dose: 267.5 mls/hr Documented by: Pharmacy Consult (Consult Rx Perform Med Rec) 1 each MISCELLANE ONCE PRN PRN Reason: Consult order Pharmacy Consult (Consult Rx Vancomycin Dosing) 1 each MISCELLANE DAILY PRN PRN Reason: Consult order Home Medications Medication Instructions Recorded Confirmed Last Taken Type buprenorphine 8 mg-naloxone 2 mg 2 strip SUBLINGUAL DAILY 12/26/21 12/26/21 12/26/21 History sublingual film Physical Exam Vital Signs and Narrative: Vital Signs: Last Vital Signs Temp 98 F 12/26/21 14:27 Pulse 97 12/26/21 14:27 Resp 18 12/26/21 14:27 BP 128/71 12/26/21 14:27 Pulse Ox 95 12/26/21 14:27 BMI result Body Mass Index 32.1 Const: Other: Constitutional: Alert, in no distress, overweight. Mental Status: Oriented to person, place and time. Eyes: Pupils are equal, round and reactive to light. Ear, Nose and Throat: Oropharynx clear, mucous membranes moist. Ears and nose without eformities. Trachea midline. Respiratory: Clear to auscultation. No wheezing, rales or rhonchi. Cardiovascular: S1 S2 regular. No murmurs, rubs or gallops. Gastrointestinal: Abdomen soft, non-tender, non-distended. Normal bowel sounds.? Neurologic: Cranial nerves II-XII grossly intact. No focal neurological deficits. Moves all extremities spontaneously.? Skin: No rashes or lesions.? Musculoskeletal: No cyanosis or clubbing. Psychiatric: Normal mood and affect? Results Labs CBC and Chem 7: 12/27/21 07:42 12/27/21 07:42 Labs: Laboratory Results - last 24 hr 12/26/21 12/26/21 12/26/21 14:51 14:51 14:51 MCV 84.7 MCH 28.2 MCHC 33.3 RDW 14.2 Plt Count 279 MPV 11.1 Immature Gran % (Auto) Cancelled Neut % (Auto) Cancelled Lymph % (Auto) Cancelled [place] % (Auto) Cancelled Eos % (Auto) Cancelled Baso % (Auto) Cancelled Lymph # (Auto) Cancelled [place] # (Auto) Cancelled Eos # (Auto) Cancelled Baso # (Auto) Cancelled Abs Immat Gran (auto) Cancelled Absolute Neuts (auto) Cancelled Absolute Nucleated RBC 0.000 Nucleated RBC % (auto) 0.0 Neutrophils % (Manual) 87 H Band Neutrophils % 10 H Lymphocytes % (Manual) 3 L Abs Neuts (Manual) 16.2 H Lymphocytes # (Manual) 0.5 L Toxic Granulation PRESENT Toxic Vacuolation PRESENT Dohle Bodies PRESENT Platelet Estimate NORMAL Plt Morphology Comment NORMAL RBC Morphology NOTED Polychromasia 1+ (0-2) Ade Cells 1+ (0-2) Schistocytes 1+ (0-2) PT INR D-Dimer High Sensitivty VBG pH VBG pCO2 VBG pO2 VBG HCO3 VBG O2 Saturation VBG Base Excess Anion Gap 18 Creatinine 2.44 H Estim Creat Clear Calc 45.5 Estimated GFR 28 Random Glucose 81 Lactic Acid Calcium 7.9 L Magnesium 2.6 Ferritin 5549 H Total Bilirubin 3.6 H Direct Bilirubin 3.0 H AST 102 H ALT 85 H Alkaline Phosphatase 208 H Lactate Dehydrogenase 486 H C-Reactive Protein 37.96 H Total Protein 5.4 L Albumin 2.6 L Lipase 4 L 12/26/21 12/26/21 12/26/21 14:51 14:52 14:55 MCV MCH MCHC RDW Plt Count MPV Immature Gran % (Auto) Neut % (Auto) Lymph % (Auto) [place] % (Auto) Eos % (Auto) Baso % (Auto) Lymph # (Auto) [place] # (Auto) Eos # (Auto) Baso # (Auto) Abs Immat Gran (auto) Absolute Neuts (auto) Absolute Nucleated RBC Nucleated RBC % (auto) Neutrophils % (Manual) Band Neutrophils % Lymphocytes % (Manual) Abs Neuts (Manual) Lymphocytes # (Manual) Toxic Granulation Toxic Vacuolation Dohle Bodies Platelet Estimate Plt Morphology Comment RBC Morphology Polychromasia Ade Cells Schistocytes PT 14.8 H INR 1.3 H D-Dimer High Sensitivty 1401 VBG pH 7.35 VBG pCO2 37 VBG pO2 59 VBG HCO3 21 L VBG O2 Saturation 84.0 VBG Base Excess -3.8 Anion Gap Creatinine Estim Creat Clear Calc Estimated GFR Random Glucose Lactic Acid 0.9 Calcium Magnesium Ferritin Total Bilirubin Direct Bilirubin AST ALT Alkaline Phosphatase Lactate Dehydrogenase C-Reactive Protein Total Protein Albumin Lipase Imaging Radiologist's Impressions: Impressions Chest X-Ray 12/26/21 14:17 IMPRESSION: No change in dense consolidation in the right lung sparing the right lung apex and question small right pleural effusion from yesterday's exam. Assessment and Plan (1) Bacteremia: Status: Acute (2) COVID-19: Status: Acute (3) Leukocytosis: Qualifiers: Leukocytosis type: unspecified Qualified Code(s): D72.829 - Elevated white blood cell count, unspecified Status: Acute (4) PNA (pneumonia): Qualifiers: Laterality: bilateral Lung location: unspecified part of lung Pneumonia type: due to unspecified organism Qualified Code(s): J18.9 - Pneumonia, unspecified organism Status: Acute (5) Pleural effusion: Status: Acute (6) SOB (shortness of breath): Status: Acute Plan 46 w/ history opioid dependence now on subxone here with CAP associated with gram positive coccii bacteremia, covid 19, and DARY, Sepsis 1/ Severe sepsis due to PNA and bacteremia 2/Gram positive cocci bacteremia -Empiric Vanco for MRSA -Ceftriaoxone to cover Strep -ID consult -Echo on Wednesday to rule out endocarditis -VQ scan is being done for high DDimer level,no hypoxia, I think secondary to covid 2/ Covid 19 PNA--hold Decadron unless hypoxic, No Remdesevir given kidney failure, Baricitinib if hypoxic and requires High flow 3/ DARY--likely ATN from speis, IVF and recheck and Nephro consult tomorrow 4/ Opioid dependence, continue Suboxne 5/DVT prophylaxis--Lovenox Quality Stroke Does the patient have a stroke diagnosis?: No VTE Prior VTE?: No VTE Risk Level:: Medical - moderate - high VTE Device Contraindication: Treatment Not Tolerated VTE Drug Contraindication: N/A - Med Ordered
[2021-12-26 17:33] LABS: Ferritin 4906 ng/mL (20-250)
[2021-12-26] MEDS: Enoxaparin Sodium 40 MG/0.4 ML SYRINGE SUBCUT (18:23)
[2021-12-26] MEDS: Sodium Chloride 0.45 % 1,000 ML 100 ML IVCONT (18:23)
[2021-12-26 20:05] VITALS: BMI 30.8
[2021-12-26 20:08] VITALS: BP 113/62; PULSE 112; RESP 20; TEMP 36.7; O2SAT 91
[2021-12-26] MEDS: 0.9 % Sodium Chloride Flush 3 ML SYRINGE IVFLUSH (20:33)
[2021-12-26] MEDS: guaiFENesin 100 MG/5 ML LIQUID PO (20:42)
[2021-12-26 23:11] VITALS: BP 100/54; PULSE 84; RESP 20; TEMP 37.3; O2SAT 90
[2021-12-27] MEDS: diphenhydrAMINE HCL 50 MG/ML VIAL 25 MG IVPUSH (02:54)
[2021-12-27 03:34] VITALS: BP 121/70; PULSE 105; RESP 18; TEMP 36.9; O2SAT 96
[2021-12-27] MEDS: Sodium Chloride 0.45 % 1,000 ML 100 ML IVCONT (04:27)
[2021-12-27 07:57] LABS: Hemoglobin 10.3 g/dl (14.0-18.0); Mean Corpuscular HGB Conc 33.2 g/dl (31.0-36.0); Mean Corpuscular Hemoglobin 28.1 pg (27.0-33.0); Mean Corpuscular Volume 84.7 fL (80.0-98.0); Platelet Count 270 X10*3/uL (160-400); Red Blood Count 3.66 X10*6/uL (4.60-5.80); Red Cell Distribution Width 14.5 % (11.0-16.0); White Blood Count 13.6 X10*3/uL (4.8-10.8)
[2021-12-27 07:58] VITALS: BP 107/56; PULSE 101; RESP 18; TEMP 37.4; O2SAT 92
[2021-12-27 08:20] LABS: Anion Gap 17 (12-20); Blood Urea Nitrogen 58 mg/dL (9-16); Calcium 7.6 mg/dL (8.4-10.2); Carbon Dioxide 18 mmol/L (22-29); Chloride 103 mmol/L (96-108); Creatinine Clr Calc Pharmacy 55.3; Estimated Glomerular Filt Rate 36; Glucose Random 85 mg/dL (60-115); Potassium 3.7 mmol/L (3.3-5.1); Sodium 134 mmol/L (135-145)
[2021-12-27] MEDS: Docusate Sodium 100 MG CAPSULE PO (08:59)
[2021-12-27] MEDS: cefTRIAXone sodium 1 GM in 0.9 % Sodium Chloride 50 ML IV (09:02)
--- NOTE | 2021-12-27 09:51 | P.PNIM_ITS ---
Subjective Subjective Date of Service: 12/27/21 Interval History: CC:F/u on sepsis, gram positive cocci bacteremia, sepsis, covid 19 Interval history: No sob, no fever Review of Systems no fever +sob Physical Exam Vital Signs: Vital Signs: Last Vital Signs Temp 99.4 F 12/27/21 07:58 Pulse 101 H 12/27/21 07:58 Resp 18 12/27/21 07:58 BP 107/56 L 12/27/21 07:58 Pulse Ox 92 12/27/21 07:58 BMI result Body Mass Index 30.8 Const: Other: General: AO X 3, no acute distress Resp: normal respiratroy effort, no acesory muscle use CVS: S1,S2,RRR GI: +BS, NT, no distention Skin: No rash Neuro: motor grossly intact Psych: appropriate affect Objective Data Active Medications Acetaminophen (Acetaminophen Supp 650 Mg Supp.Rect) 650 mg TN Q6H PRN PRN Reason: Pain, Mild (Pain Scale 1-3) Docusate Sodium (Docusate Sodium 100 Mg Capsule) 100 mg PO BID [facility] Last Admin: 12/27/21 08:59 Dose: 100 mg Documented by: DEEPALI Enoxaparin Sodium (Enoxaparin Sodium 40 Mg/0.4 Ml Syringe) 40 mg SUBCUT Q24H [facility] Last Admin: 12/26/21 18:23 Dose: 40 mg Documented by: TOYA Guaifenesin (Guaifenesin 100 Mg/5 Ml Liquid) 5 ml PO Q6H PRN PRN Reason: Cough Last Admin: 12/26/21 20:42 Dose: 5 ml Documented by: OSIRIS Sodium Chloride () 1,000 mls @ 100 mls/hr IVCONT .Q10H [facility] Last Admin: 12/27/21 04:27 Dose: 100 mls/hr Documented by: OSIRIS Ceftriaxone Sodium 1 gm/ (Sodium Chloride) 50 mls @ 100 mls/hr IV Q24H [facility] Last Admin: 12/27/21 09:02 Dose: 100 mls/hr Documented by: DEEPALI Vancomycin HCl 1,000 mg/ (Sodium Chloride) 270 mls @ 270 mls/hr IV Q24H [facility] Ondansetron HCl (Ondansetron Hcl 4 Mg/2 Ml Vial) 4 mg IVPUSH Q8H PRN PRN Reason: Nausea and Vomiting Pharmacy Consult (Consult Rx Perform Med Rec) 1 each MISCELLANE ONCE PRN PRN Reason: Consult order Pharmacy Consult (Consult Rx Vancomycin Dosing) 1 each MISCELLANE DAILY PRN PRN Reason: Consult order Pharmacy Consult (Consult Rx Vancomycin Dosing) 1 each MISCELLANE DAILY PRN PRN Reason: Consult order Sodium Chloride (0.9 % Sodium Chloride Flush 3 Ml Syringe) 3 ml IVFLUSH QSHIFT [facility] Last Admin: 12/27/21 09:02 Dose: Not Given Documented by: DEEPALI Non-Admin Reason: IV Running Labs CBC & Chem 7: 12/27/21 07:42 12/27/21 07:42 Labs: Laboratory Results - last 24 hr 12/26/21 12/26/21 12/26/21 14:51 14:51 14:51 MCV 84.7 MCH 28.2 MCHC 33.3 RDW 14.2 Plt Count 279 MPV 11.1 Immature Gran % (Auto) Cancelled Neut % (Auto) Cancelled Lymph % (Auto) Cancelled [place] % (Auto) Cancelled Eos % (Auto) Cancelled Baso % (Auto) Cancelled Lymph # (Auto) Cancelled [place] # (Auto) Cancelled Eos # (Auto) Cancelled Baso # (Auto) Cancelled Abs Immat Gran (auto) Cancelled Absolute Neuts (auto) Cancelled Absolute Nucleated RBC 0.000 Nucleated RBC % (auto) 0.0 Neutrophils % (Manual) 87 H Band Neutrophils % 10 H Lymphocytes % (Manual) 3 L Abs Neuts (Manual) 16.2 H Lymphocytes # (Manual) 0.5 L Toxic Granulation PRESENT Toxic Vacuolation PRESENT Dohle Bodies PRESENT Platelet Estimate NORMAL Plt Morphology Comment NORMAL RBC Morphology NOTED Polychromasia 1+ (0-2) Ade Cells 1+ (0-2) Schistocytes 1+ (0-2) PT INR D-Dimer High Sensitivty VBG pH VBG pCO2 VBG pO2 VBG HCO3 VBG O2 Saturation VBG Base Excess Anion Gap 18 Estim Creat Clear Calc 45.5 Estimated GFR 28 Random Glucose 81 Lactic Acid Calcium 7.9 L Magnesium 2.6 Ferritin 4906 H Total Bilirubin 3.6 H Direct Bilirubin 3.0 H AST 102 H ALT 85 H Alkaline Phosphatase 208 H Lactate Dehydrogenase 486 H Total Creatine Kinase 56 C-Reactive Protein 37.96 H Total Protein 5.4 L Albumin 2.6 L Lipase 4 L 12/26/21 12/26/21 12/26/21 14:51 14:52 14:55 MCV MCH MCHC RDW Plt Count MPV Immature Gran % (Auto) Neut % (Auto) Lymph % (Auto) [place] % (Auto) Eos % (Auto) Baso % (Auto) Lymph # (Auto) [place] # (Auto) Eos # (Auto) Baso # (Auto) Abs Immat Gran (auto) Absolute Neuts (auto) Absolute Nucleated RBC Nucleated RBC % (auto) Neutrophils % (Manual) Band Neutrophils % Lymphocytes % (Manual) Abs Neuts (Manual) Lymphocytes # (Manual) Toxic Granulation Toxic Vacuolation Dohle Bodies Platelet Estimate Plt Morphology Comment RBC Morphology Polychromasia Ade Cells Schistocytes PT 14.8 H INR 1.3 H D-Dimer High Sensitivty 1401 VBG pH 7.35 VBG pCO2 37 VBG pO2 59 VBG HCO3 21 L VBG O2 Saturation 84.0 VBG Base Excess -3.8 Anion Gap Estim Creat Clear Calc Estimated GFR Random Glucose Lactic Acid 0.9 Calcium Magnesium Ferritin Total Bilirubin Direct Bilirubin AST ALT Alkaline Phosphatase Lactate Dehydrogenase Total Creatine Kinase C-Reactive Protein Total Protein Albumin Lipase 12/27/21 12/27/21 07:42 07:42 MCV 84.7 MCH 28.1 MCHC 33.2 RDW 14.5 Plt Count 270 MPV 11.0 Immature Gran % (Auto) Neut % (Auto) Lymph % (Auto) [place] % (Auto) Eos % (Auto) Baso % (Auto) Lymph # (Auto) [place] # (Auto) Eos # (Auto) Baso # (Auto) Abs Immat Gran (auto) Absolute Neuts (auto) Absolute Nucleated RBC 0.000 Nucleated RBC % (auto) 0.0 Neutrophils % (Manual) Band Neutrophils % Lymphocytes % (Manual) Abs Neuts (Manual) Lymphocytes # (Manual) Toxic Granulation Toxic Vacuolation Dohle Bodies Platelet Estimate Plt Morphology Comment RBC Morphology Polychromasia [place] Cells Schistocytes PT INR D-Dimer High Sensitivty VBG pH VBG pCO2 VBG pO2 VBG HCO3 VBG O2 Saturation VBG Base Excess Anion Gap 17 Estim Creat Clear Calc 55.3 Estimated GFR 36 Random Glucose 85 Lactic Acid Calcium 7.6 L Magnesium Ferritin Total Bilirubin Direct Bilirubin AST ALT Alkaline Phosphatase Lactate Dehydrogenase Total Creatine Kinase C-Reactive Protein Total Protein Albumin Lipase Assessment and Plan (1) Bacteremia: Status: Acute (2) COVID-19: Status: Acute (3) Leukocytosis: Status: Acute (4) PNA (pneumonia): Status: Acute (5) Pleural effusion: Status: Acute (6) Sepsis: Status: Acute Plan 46 w/ history opioid dependence now on subxone here with CAP associated with gram positive coccii bacteremia, covid 19, and DARY, Sepsis 1/ Severe sepsis due to PNA and bacteremia, improving, WBC trending down 2/Gram positive cocci bacteremia -Empiric Vanco for MRSA -Ceftriaoxone to cover Strep -ID consult -Echo on Wednesday to rule out endocarditis -VQ scan finding correspond with PNA and therefore no PE 2/ Covid 19 PNA--add Decadron with O2 sat trending down, No Remdesevir given kidney failure, Baricitinib if hypoxic and requires High flow 3/ DARY--likely ATN from speis, IVF and recheck and Nephro consult today 4/ Opioid dependence, continue Suboxne 5/DVT prophylaxis--Lovenox Quality Stroke Does the patient have a stroke diagnosis?: No VTE Prior VTE?: No VTE Risk Level:: Medical - moderate - high VTE Device Contraindication: Treatment Not Tolerated VTE Drug Contraindication: N/A - Med Ordered
--- NOTE | 2021-12-27 10:12 | PHA.PROG ---
Admission Date/Time: December 26, 2021 17:01 Indication: bacteremia Weight in k.3 kg Adjusted body weight in K.3 kg [place] body weight in K.3 kg Obesity Dosing Indication % IBW: Serum Creatinine - Last 168 Hours 12/26/21 12/27/21 14:51 07:42 Creatinine 2.44 H 1.97 H Estimated CrCl and GFR - Last 168 Hours 12/26/21 12/27/21 14:51 07:42 Estim Creat Clear Calc 45.5 55.3 Estimated GFR 28 36 Vancomycin Loading Dose: 1750 mg x 1 given 12/26/21 @1646 Current Vancomycin Dosing Regimen: 1250 mg q24h Vancomycin Monitoring using AUC goal of 400 - 600 range with trough as surrogate marker predicted : predicted auc 578 Date and Time for next Vancomycin Level to be drawn: random level 12/28/21 @1400 Pharmacist Comments on Vancomycin Plan: Vancomycin dosing will take advantage of [employer] as a clinical decision support tool that uses Bayesian modeling to calculate individual patient's pharmacokinetic parameters and forecast the patient's drug concentration time course with the target goal AUC 24 range of 400 - 600 mg/L/hr.
[2021-12-27 11:26] VITALS: BP 119/63; PULSE 105; RESP 18; TEMP 37.1; O2SAT 95
--- NOTE | 2021-12-27 12:47 | MHC.CM.PN ---
pt left ama
--- NOTE | 2021-12-27 13:40 | PM.DS ---
DS: Providers Provider Date of Service: 12/27/21 Date of admission: 12/26/21 17:01 Primary care physician: Unknown Physician Consults: 12/26/21 17:03 Consult to Infectious Diseases Routine Consulting Provider: Amarilis Lacey Reason for consultation: bacteremia Has provider been notified: No 12/27/21 09:53 Consult to Nephrology Routine Consulting Provider: Milton Felix Reason for consultation: DARY Has provider been notified: No DS: Diagnosis Discharge Diagnosis (1) Bacteremia: Status: Acute (2) COVID-19: Status: Acute (3) Leukocytosis: Status: Acute (4) PNA (pneumonia): Status: Acute (5) Pleural effusion: Status: Acute (6) Sepsis: Status: Acute DS: Summary Hospital Course Hospital Course: He was admitted less than 24 hours ago for pneumonia, sepsis and bacteremia, DARY and was on IV Vanco and Ceftriaxone and decided to leave AMA, i advised him not to and he understand he's taking substantial risks and including the possibility of if not treated properly. His blood culture is showing streptococcus but no sensitivity. Oxygen is 95 on room air. No fever. As alternative to IV antibiotics, I am prescribing Levaquin 750 mg daily for 14 days. Advised to go see his doctor and to follow covid isolation protocol. Final diagnoses: 1/ Severe sepsis due to PNA and bacteremia, improving, WBC trending down 2/Streptococcus bacteremia 3/ Covid 19 PNA 4/ DARY--likely ATN 5/ Opioid dependence Time Spent with Patient Time attestation: Total time spent providing and/or coordinating discharge services: Discharge coordination time: Greater than 30 minutes Quality: Stroke Does the patient have a stroke diagnosis?: No Physical Exam Vital Signs: Vital Signs: Last Vital Signs Temp 98.7 F 12/27/21 11:26 Pulse 105 H 12/27/21 11:26 Resp 18 12/27/21 11:26 BP 119/63 12/27/21 11:26 Pulse Ox 95 12/27/21 11:26 BMI result Body Mass Index 30.8 DS: Data Data Completed and Pending Labs on day of discharge: Laboratory Results - last 24 hr 12/26/21 12/26/21 12/26/21 14:51 14:51 14:51 WBC 16.7 H RBC 3.93 L Hgb 11.1 L Hct 33.3 L MCV 84.7 MCH 28.2 MCHC 33.3 RDW 14.2 Plt Count 279 MPV 11.1 Immature Gran % (Auto) Cancelled Neut % (Auto) Cancelled Lymph % (Auto) Cancelled [place] % (Auto) Cancelled Eos % (Auto) Cancelled Baso % (Auto) Cancelled Lymph # (Auto) Cancelled [place] # (Auto) Cancelled Eos # (Auto) Cancelled Baso # (Auto) Cancelled Abs Immat Gran (auto) Cancelled Absolute Neuts (auto) Cancelled Absolute Nucleated RBC 0.000 Nucleated RBC % (auto) 0.0 Neutrophils % (Manual) 87 H Band Neutrophils % 10 H Lymphocytes % (Manual) 3 L Abs Neuts (Manual) 16.2 H Lymphocytes # (Manual) 0.5 L Toxic Granulation PRESENT Toxic Vacuolation PRESENT Dohle Bodies PRESENT Platelet Estimate NORMAL Plt Morphology Comment NORMAL RBC Morphology NOTED Polychromasia 1+ (0-2) Ade Cells 1+ (0-2) Schistocytes 1+ (0-2) PT INR D-Dimer High Sensitivty VBG pH VBG pCO2 VBG pO2 VBG HCO3 VBG O2 Saturation VBG Base Excess Sodium 130 L Potassium 3.9 Chloride 96 Carbon Dioxide 20 L Anion Gap 18 BUN 59 H Creatinine 2.44 H Estim Creat Clear Calc 45.5 Estimated GFR 28 Random Glucose 81 Lactic Acid Calcium 7.9 L Magnesium 2.6 Ferritin 4906 H Total Bilirubin 3.6 H Direct Bilirubin 3.0 H AST 102 H ALT 85 H Alkaline Phosphatase 208 H Lactate Dehydrogenase 486 H Total Creatine Kinase 56 C-Reactive Protein 37.96 H Total Protein 5.4 L Albumin 2.6 L Lipase 4 L 12/26/21 12/26/21 12/26/21 14:51 14:52 14:55 WBC RBC Hgb Hct MCV MCH MCHC RDW Plt Count MPV Immature Gran % (Auto) Neut % (Auto) Lymph % (Auto) [place] % (Auto) Eos % (Auto) Baso % (Auto) Lymph # (Auto) [place] # (Auto) Eos # (Auto) Baso # (Auto) Abs Immat Gran (auto) Absolute Neuts (auto) Absolute Nucleated RBC Nucleated RBC % (auto) Neutrophils % (Manual) Band Neutrophils % Lymphocytes % (Manual) Abs Neuts (Manual) Lymphocytes # (Manual) Toxic Granulation Toxic Vacuolation Dohle Bodies Platelet Estimate Plt Morphology Comment RBC Morphology Polychromasia Ade Cells Schistocytes PT 14.8 H INR 1.3 H D-Dimer High Sensitivty 1401 VBG pH 7.35 VBG pCO2 37 VBG pO2 59 VBG HCO3 21 L VBG O2 Saturation 84.0 VBG Base Excess -3.8 Sodium Potassium Chloride Carbon Dioxide Anion Gap BUN Creatinine Estim Creat Clear Calc Estimated GFR Random Glucose Lactic Acid 0.9 Calcium Magnesium Ferritin Total Bilirubin Direct Bilirubin AST ALT Alkaline Phosphatase Lactate Dehydrogenase Total Creatine Kinase C-Reactive Protein Total Protein Albumin Lipase 12/27/21 12/27/21 07:42 07:42 WBC 13.6 H RBC 3.66 L Hgb 10.3 L Hct 31.0 L MCV 84.7 MCH 28.1 MCHC 33.2 RDW 14.5 Plt Count 270 MPV 11.0 Immature Gran % (Auto) Neut % (Auto) Lymph % (Auto) [place] % (Auto) Eos % (Auto) Baso % (Auto) Lymph # (Auto) [place] # (Auto) Eos # (Auto) Baso # (Auto) Abs Immat Gran (auto) Absolute Neuts (auto) Absolute Nucleated RBC 0.000 Nucleated RBC % (auto) 0.0 Neutrophils % (Manual) Band Neutrophils % Lymphocytes % (Manual) Abs Neuts (Manual) Lymphocytes # (Manual) Toxic Granulation Toxic Vacuolation Dohle Bodies Platelet Estimate Plt Morphology Comment RBC Morphology Polychromasia Ade Cells Schistocytes PT INR D-Dimer High Sensitivty VBG pH VBG pCO2 VBG pO2 VBG HCO3 VBG O2 Saturation VBG Base Excess Sodium 134 L Potassium 3.7 Chloride 103 Carbon Dioxide 18 L Anion Gap 17 BUN 58 H Creatinine 1.97 H Estim Creat Clear Calc 55.3 Estimated GFR 36 Random Glucose 85 Lactic Acid Calcium 7.6 L Magnesium Ferritin Total Bilirubin Direct Bilirubin AST ALT Alkaline Phosphatase Lactate Dehydrogenase Total Creatine Kinase C-Reactive Protein Total Protein Albumin Lipase Discharge Plan Discharge Anticipated Discharge Date/Time: 12/27/21 12:24 Patient Disposition: Left Against Medical Advice Discharge Diagnosis: Pneumonnia and bacteremia with sepsis Referrals: Physician,Unknown J [Primary Care Provider] - 1 Week Discharge Medications: New levofloxacin 750 mg tablet 750 mg PO DAILY 14 Days Qty: 14 0RF Continued buprenorphine-naloxone 8-2 mg film 2 strip sublingual DAILY 0RF Discharge Orders: Discharge Order (Routine); Ordered 12/27/21 Ordered By: Saúl Parham Diet: advance to usual diet Activity on Discharge: As tolerated Care Plan Goals: full recovery from pneumonia Health Concerns: pneumonia, covid Plan of Treatment: Take Levaquin as directed and follow up with your Doctor in a week, Take all covid precaution inlcuding using mask per recommendation, you follow isolation protocol Assessment: as above
== END 2021-12-27 15:15 | disposition left against medical advice (07) | DRG 720 ==
LOC: HO.ED 14:37 → HO.EDOVER 17:10 → HO.IMC 18:50
PROVIDERS: Admitting Provider Internal Medicine; Emergency Provider Emergency Medicine; Visit Provider Internal Medicine
DX: A41.9 Sepsis, unspecified organism (principal); N17.0 Acute kidney failure with tubular necrosis; J12.82 Pneumonia due to coronavirus disease 2019; J91.8 Pleural effusion in other conditions classified elsewhere; R65.20 Severe sepsis without septic shock; U07.1 COVID-19; D72.829 Elevated white blood cell count, unspecified; F11.20 Opioid dependence, uncomplicated; Z79.899 Other long term (current) drug therapy
CPT/HCPCS: 36415; 71045; 78580; 80048; 80076; 82550; 82728; 82803; 83605; 83615; 83690; 83735; 85007; 85025; 85027; 85379; 85610; 86140; 87040; 93005; 96365; 96366; 96367; 99284; 99285; A9540; J0696; J1200; J1650; J2543; J3370

== ENCOUNTER 2021-12-30 22:56 | Inpatient (IN) | payer OTHER, SELFPAY ==
--- NOTE | ~2021-12-30 | CT_ITS ---
EXAMINATION: CT ABDOMEN AND PELVIS WITHOUT CONTRAST CLINICAL INFORMATION: Abdominal pain. COMPARISON: 12/25/2021 TECHNIQUE: Multidetector volumetric imaging was performed from the superior aspect of the liver through the pubic symphysis. Sagittal and coronal reformatted images were obtained on the technologist's workstation. This CT examination was performed using dose optimization techniques as appropriate, variously including the following: *Automated exposure control *Adjustment of mA and/or kV according to patient size (this includes techniques or standardized protocols for targeted exams where dose is matched to indication/reason for exam; i.e. extremities or head) *Use of iterative reconstruction technique DLP: 694 mGy-cm FINDINGS: LUNG BASES: There is marked persistent consolidation in the right lower and right middle lobes, though aeration is improved as compared to prior. Trace right pleural effusion. Left lung bases clear. LIVER, GALLBLADDER, AND BILIARY TREE: The liver is mildly enlarged, measuring 21 cm craniocaudal. The liver is normal in shape and attenuation. No focal hepatic lesion or biliary ductal dilatation is present. The gallbladder is unremarkable with no evidence of radiopaque gallstones, gallbladder wall thickening, or obvious pericholecystic inflammatory changes. PANCREAS: There is subtle peripancreatic fat stranding with extension around the adrenal gland. Pancreatic parenchyma is otherwise normal. No ductal dilatation. SPLEEN: Unremarkable. ADRENAL GLANDS: As noted above, the peripancreatic fat stranding and into the retroperitoneum around the adrenal glands bilaterally. Adrenal glands are otherwise unremarkable. KIDNEYS AND URETERS: Subtle focal hypoattenuation in the left lower renal pole measures 1.1 cm in diameter and is unchanged from prior. No recommended imaging follow up. The kidneys are otherwise normal in size, shape, and attenuation. No hydronephrosis, hydroureter, or calculi seen. No perinephric stranding. BLADDER: Unremarkable. GASTROINTESTINAL TRACT: Stomach, small bowel, and colon are normal in caliber. No bowel wall thickening or surrounding inflammatory changes. Submucosal fatty deposition is again seen within the colon and may be related to body habitus. Appendix is normal. No intraperitoneal free fluid or free air. ABDOMINAL WALL: No significant hernia is appreciated. LYMPH NODES: Normal. VASCULAR: Unremarkable. PELVIC VISCERA: Unremarkable. OSSEOUS STRUCTURES: Mild osteoarthritis in the hips. No acute osseous findings. Mild degenerative spondylosis in the lumbar spine. CT/CT abdomen pelvis wo con IMPRESSION: 1. Improving consolidation in the right lower and right middle lobes as compared to prior. 2. Mild peripancreatic fat stranding with involvement of the adjacent adrenal glands. This it is similar to prior and could correspond to acute pancreatitis. Recommend correlation with serum amylase and lipase. 3. Hepatomegaly.
--- NOTE | ~2021-12-30 | XR_ITS ---
EXAMINATION: XR CHEST CLINICAL INFORMATION: Right pneumonia. COMPARISON: 12/26/2021 TECHNIQUE: Frontal view of the chest was obtained. FINDINGS: There is improvement in the patchy airspace consolidation throughout the right lung with relative sparing of the right lung apex. This consolidation is most notable at the medial aspect of the right lung base. Left lung is relatively clear. No left-sided effusion or pneumothorax. Cardiac and mediastinal contours are unchanged. Pulmonary vasculature is normal. No acute osseous findings. XR/XR chest 1V IMPRESSION: Marked improvement in the right-sided airspace consolidation.
--- NOTE | ~2021-12-30 | US_ITS ---
EXAMINATION: US ABDOMEN LIMITED CLINICAL INFORMATION: Pancreatitis. COMPARISON: None TECHNIQUE: Real-time imaging of the right upper quadrant abdominal viscera. FINDINGS: PANCREAS: The pancreas is partially visualized with the head and the body of the pancreas is echogenic but unremarkable. The tail is obscured. LIVER: The liver is enlarged in size measuring 21.3 cm. The liver contour is normal. Parenchymal echogenicity is increased. No focal hepatic lesion. There is no intrahepatic biliary duct dilatation seen. GALLBLADDER: he gallbladder is physiologically distended without evidence of stones, sludge, polyps, wall thickening or pericholecystic fluid. COMMON BILE DUCT: Normal in caliber measuring 0.3 cm in diameter. RIGHT KIDNEY: Normal. No hydronephrosis. No renal calculi or focal parenchymal lesions. The kidney measures 12.4 cm in maximum dimension. FREE FLUID: None. US/US abdomen limited IMPRESSION: 12.4 mild hepatic steatosis without focal lesion. Echogenic body and the head of the pancreas. The tail is obscured by gas. The right kidney, and CBD appears unremarkable.
[2021-12-30 23:00] VITALS: BP 147/75; PULSE 62; RESP 22; TEMP 36.8; O2SAT 98; BMI 30.4
[2021-12-30 23:40] VITALS: BP 117/99; PULSE 62; RESP 28; TEMP 36.7; O2SAT 98
--- NOTE | 2021-12-30 23:43 | ED_ITS ---
HPI - General Adult General Chief complaint: General Medical Stated complaint: septic shock? Time Seen by Provider: 12/30/21 22:59 Source: patient Mode of arrival: ambulatory Limitations: no limitations History of Present Illness HPI narrative: Patient 46 years old was admitted here on 12/26 for pneumonias with Gram- positive bacteremia growing strep treated with IV vancomycin and Rocephin patient left against medical advise on 12/27 continue to take Levaquin comes back as nurse called him for post bacteremia to come back to the hospital. Patient although feeling better still coughing with patient blood culture done on 12/25 was positive for strep pneumonia repeat cultures on 12/26 was negative. Patient also complaining of swelling of the legs without any calf tenderness patient not using any IV drugs is clean for some time is on Suboxone program patient denies any fever or chills at this time Related Data Home Medications Medication Instructions Recorded Confirmed buprenorphine 8 mg-naloxone 2 mg 2 strip SUBLINGUAL DAILY 12/26/21 12/26/21 sublingual film Previous Rx's Medication Instructions Recorded levofloxacin 750 mg tablet 750 mg PO DAILY 14 Days #14 tab 12/27/21 Allergies Allergy/AdvReac Type Severity Reaction Status Date / Time No Known Allergies Allergy Verified 12/25/21 19:49 [No Known Allergies*] Review of Systems Review of Systems: Yes all other systems are reviewed and are negative PMFSH Past Medical History Medical History Heroin addiction Social History Social History Household Members: Significant Other Housing: Apartment Do you presently have visiting nurse or other home services: No Alcohol intake: never Patient Tobacco Use Status: Never used Tobacco Substance Use Type: Former Substance User Advance Directives: No Advance Directives Information Provided: Yes Advance Directives Date on File: 12/26/21 Physical Exam ED Vital Signs: Vital Signs - 24 hr 12/30/21 23:00 12/30/21 23:40 12/31/21 00:26 Temperature 98.2 F 98.0 F 98.2 F Pulse Rate 62 62 62 Respiratory Rate 22 H 28 H 16 Blood Pressure 147/75 H 117/99 H 131/62 Pulse Oximetry 98 98 96 BMI result Body Mass Index 30.4 Appearance: Alert. Oriented X3. No acute distress. Looks pale Eyes: PERRLA, No Nystagmus ENT: Pharynx normal. Oral Mucosa moist Neck: Normal inspection. Neck supple. CVS: Normal heart rate and rhythm. Pulses normal. Respiratory: No respiratory distress. Equal air entry bilateral, bilateral diffuse infiltrate right more than the left Abdomen: Soft and nontender. Bowel sounds are present, no mass palpable, no CVA tenderness Skin: Skin warm and dry. Normal skin color. Normal skin turgor. Extremities2+ lower extremity edema. No calf tenderness Neuro: Oriented X 3. No motor deficit. Medical Decision Making MDM Narrative Medical decision making narrative: Patient with right pneumonia with bacteremia with leukocytosis will start patient on Rocephin also will give vancomycin. Admit to medical floor Lab Data Lab results reviewed: Yes I reviewed the patient's lab results. Result diagrams: 12/30/21 23:38 12/30/21 23:38 Labs: Lab Results 12/30/21 12/30/21 12/30/21 Range/Units 23:38 23:38 23:38 WBC 22.5 H (4.8-10.8) X10*3/uL RBC 3.99 L (4.60-5.80) X10*6/uL Hgb 11.2 L (14.0-18.0) g/dl Hct 34.5 L (42.0-52.0) % MCV 86.5 (80.0-98.0) fL MCH 28.1 (27.0-33.0) pg MCHC 32.5 (31.0-36.0) g/dl RDW 14.5 (11.0-16.0) % Plt Count 501 H D (160-400) X10*3/uL MPV 10.2 (9.4-12.4) fL Immature Gran % (Auto) 3.4 H (0.0-0.4) % Neut % (Auto) 86.7 H (45-73) % Lymph % (Auto) 6.0 L (20-40) % [place] % (Auto) 3.7 (2-11) % Eos % (Auto) 0.0 (0-4) % Baso % (Auto) 0.2 (0-2) % Lymph # (Auto) 1.4 (1.2-4.9) X10*3/uL [place] # (Auto) 0.8 (0.1-1.2) X10*3/uL Eos # (Auto) 0.0 (0.0-0.4) X10*3/uL Baso # (Auto) 0.0 (0.0-0.2) X10*3/uL Abs Immat Gran (auto) 0.77 H (0.00-0.03) X10*3/uL Absolute Neuts (auto) 19.5 H (2.0-8.3) x10*3/uL Absolute Nucleated RBC 0.000 (0.0-0.012) X10*3/uL Nucleated RBC % (auto) 0.0 (0.0-0.2) /100WBC Sodium 138 (135-145) mmol/L Potassium 4.3 (3.3-5.1) mmol/L Chloride 103 (96-108) mmol/L Carbon Dioxide 22 (22-29) mmol/L Anion Gap 17 (12-20) BUN 26 H D (9-16) mg/dL Creatinine 1.22 (0.5-1.4) mg/dL Estim Creat Clear Calc 88.7 Estimated GFR > 60 Random Glucose 167 H D (60-115) mg/dL Lactic Acid 1.8 (0.5-2.0) mmol/L Calcium 8.4 D (8.4-10.2) mg/dL Total Bilirubin 1.0 (0.0-1.0) mg/dL AST 51 H (5-37) U/L ALT 91 H (0-40) U/L Alkaline Phosphatase 424 H D (39-117) U/L Total Protein 6.6 D (6.5-8.0) g/dL Albumin 3.1 L (3.5-5.0) g/dL Discharge Plan Discharge Clinical Impression: PNA (pneumonia), Bacteremia Patient Disposition: Admitted As Inpatient
[2021-12-30 23:44] LABS: MANUAL DIFF FLAG NO
[2021-12-30 23:49] LABS: Basophils Percent Auto 0.2 % (0-2); Hematocrit 34.5 % (42.0-52.0); Hemoglobin 11.2 g/dl (14.0-18.0); Imm Gran Abs Auto 0.77 X10*3/uL (0.00-0.03); Imm Gran Pct Auto 3.4 % (0.0-0.4); Lymphocytes Absolute Auto 1.4 X10*3/uL (1.2-4.9); Mean Corpuscular HGB Conc 32.5 g/dl (31.0-36.0); Mean Corpuscular Hemoglobin 28.1 pg (27.0-33.0); Mean Corpuscular Volume 86.5 fL (80.0-98.0); Mean Platelet Volume 10.2 fL (9.4-12.4); Monocytes Absolute Auto 0.8 X10*3/uL (0.1-1.2); Monocytes Percent Auto 3.7 % (2-11); Neutrophils Absolute Auto 19.5 x10*3/uL (2.0-8.3); Neutrophils Percent Auto 86.7 % (45-73); Platelet Count 501 X10*3/uL (160-400); Red Blood Count 3.99 X10*6/uL (4.60-5.80); Red Cell Distribution Width 14.5 % (11.0-16.0); White Blood Count 22.5 X10*3/uL (4.8-10.8)
[2021-12-31] LABS: Lactic Acid 1.8 mmol/L (0.5-2.0)
[2021-12-31 00:06] LABS: Alanine Aminotransferase 91 U/L (0-40); Albumin Level 3.1 g/dL (3.5-5.0); Alkaline Phosphatase 424 U/L (39-117); Anion Gap 17 (12-20); Aspartate Amino Transferase 51 U/L (5-37); Blood Urea Nitrogen 26 mg/dL (9-16); Calcium 8.4 mg/dL (8.4-10.2); Carbon Dioxide 22 mmol/L (22-29); Chloride 103 mmol/L (96-108); Creatinine Clr Calc Pharmacy 88.7; Estimated Glomerular Filt Rate > 60; Glucose Random 167 mg/dL (60-115); Potassium 4.3 mmol/L (3.3-5.1); Sodium 138 mmol/L (135-145); Total Protein 6.6 g/dL (6.5-8.0)
[2021-12-31] MEDS: 0.9 % Sodium Chloride 1,000 ML 999 ML IV (00:19)
[2021-12-31] MEDS: cefTRIAXone sodium 1 GM in 0.9 % Sodium Chloride 50 ML IV (00:19)
[2021-12-31 00:26] VITALS: BP 131/62; PULSE 62; RESP 16; TEMP 36.8; O2SAT 96
[2021-12-31] MEDS: Magnesium Hydrox/Alum Hydrox 30 ML ORAL.SUSP PO (01:29)
[2021-12-31] MEDS: Famotidine/PF 20 MG/2 ML VIAL IVPUSH (01:30)
--- NOTE | 2021-12-31 01:34 | PM.IMHP ---
History of Present Illness Date of Service: 12/31/21 Chief Complaint: bacteremia and abd pain This is a 46-year-old male with past medical history of opioid dependence, who was initially admitted to the hospital on 12/26 for bacteremia secondary to strep pneumonia and was found to have chest x-ray evidence of right-sided pneumonia, patient was admitted by left AMA onot being listened to and he was not having adequate pain control. Patient returned today as his had increased weakness as well as epigastric to left-sided abdominal pain that is 10/10, constant, radiating to the left of his abdomen as well as to the back, the pain has been worsened today, associated with low oral intake, nausea with no vomiting, no diarrhea constipation. Patient denies any fever but has chills, reports no alcohol abuse Patient otherwise denies any chest pain, shortness of breath has improved, cough is improved, denies any diarrhea or constipation, no urinary symptoms and no lower extremity edema On arrival to the ED patient was found to be hemodynamically stable with no significant abnormal vitals Labs are significant for WBC count of 22.5 (WBC increased from 13 on ) hemoglobin of 11.2, hematocrit of 34.5, BUN of 26, creatinine of 1.22 which is significantly improved from his recent admission, AST of 51, ALT of 91, alk-phos of 424, CT abdomen showing evidence of pancreatitis which was also seen on CT abdomen on the . Review of Systems Review of Systems: Yes all other systems are reviewed and are negative [facility] Medical History (Updated 12/31/21 @ 07:09 by Parris Day MD) Heroin addiction Family History (Updated 12/31/21 @ 07:07 by Parris Day MD) Other No family history of coronary artery disease Surgical History (Updated 12/31/21 @ 07:07 by Parris Day MD) No pertinent past surgical history Social History Household Members: Significant Other Housing: Apartment Do you presently have visiting nurse or other home services: No Alcohol intake: never Patient Tobacco Use Status: Never used Tobacco Substance Use Type: Former Substance User Advance Directives: No Advance Directives Information Provided: Yes Advance Directives Date on File: 12/26/21 Meds Allergies Allergy/AdvReac Type Severity Reaction Status Date / Time No Known Allergies Allergy Verified 12/25/21 19:49 [No Known Allergies*] Home Medications Medication Instructions Recorded Confirmed Last Taken Type buprenorphine 8 mg-naloxone 2 mg 2 strip SUBLINGUAL DAILY 12/26/21 12/31/21 12/30/21 History sublingual film Physical Exam Vital Signs and Narrative: Vital Signs: Last Vital Signs Temp 98.2 F 12/31/21 00:26 Pulse 62 12/31/21 00:26 Resp 16 12/31/21 00:26 BP 131/62 12/31/21 00:26 Pulse Ox 96 12/31/21 00:26 BMI result Body Mass Index 30.4 Const: Other: Patient withering in pain General: cooperative and no acute distress Orientation/consciousness: patient oriented x3 Eyes: General: appearance normal, both eyes and all related structures Pupils: Equal, round and reactive pupils present Resp: Effort & Inspection: normal respiratory effort Auscultation: clear to auscultation bilaterally Cardio: Rate: regular rate Rhythm: regular rhythm GI: Other: Very tender in the epigastric region, guarding Palpation (GI): Soft to palpation Auscultation: normal bowel sounds Skin: General skin exam: no rashes or lesions noted Neuro: General: patient oriented x3 Cranial nerves: Yes Equal, round and reactive pupils present Cognition (Neuro): normal cognition Extrem: General: Yes normal to inspection and Yes no pedal edema Results Labs CBC and Chem 7: 12/30/21 23:38 12/30/21 23:38 Labs: Laboratory Results - last 24 hr 12/30/21 12/30/21 12/30/21 23:38 23:38 23:38 MCV 86.5 MCH 28.1 MCHC 32.5 RDW 14.5 Plt Count 501 H D MPV 10.2 Immature Gran % (Auto) 3.4 H Neut % (Auto) 86.7 H Lymph % (Auto) 6.0 L [place] % (Auto) 3.7 Eos % (Auto) 0.0 Baso % (Auto) 0.2 Lymph # (Auto) 1.4 [place] # (Auto) 0.8 Eos # (Auto) 0.0 Baso # (Auto) 0.0 Abs Immat Gran (auto) 0.77 H Absolute Neuts (auto) 19.5 H Absolute Nucleated RBC 0.000 Nucleated RBC % (auto) 0.0 Anion Gap 17 Estim Creat Clear Calc 88.7 Estimated GFR > 60 Random Glucose 167 H D Lactic Acid 1.8 Calcium 8.4 D Total Bilirubin 1.0 AST 51 H ALT 91 H Alkaline Phosphatase 424 H D Total Protein 6.6 D Albumin 3.1 L Assessment and Plan (1) Sepsis: Status: Acute (2) Bacteremia: Status: Acute (3) Streptococcal pneumonia: Status: Acute (4) Acute pancreatitis: Status: Acute Plan 46-year-old male with past medical history of opioid use disorder presents to the hospital after leaving [facility] on the . He was being treated for bacteremia in the setting of pneumonia, blood cultures show strep pneumonia he is now also complaining of abdominal pain found to have pancreatitis # sepsis - has tachypnea, leukocytosis, afebrile - likely in the setting of bacteremia secondary to strep pneumonia - will treat with ceftriaxone given the culture sensitivity - infectious disease consulted # pneumonia - improvement of infiltrates on chest x-ray, at this time will continue ceftriaxone per sensitivity - monitor respiratory status # acute pancreatitis - has epigastric abdominal pain and CT evidence of pancreatitis, lipase normal, pending amylase - triglycerides normal, has elevated LFTs, - will start on aggressive IV fluids, pain control - will obtain abdominal ultrasound to rule out gallbladder disease # bacteremia - secondary to strep pneumonia - treatment as above DVT prophylaxis: Lovenox Quality Stroke Does the patient have a stroke diagnosis?: No VTE Prior VTE?: No VTE Risk Level:: Medical - moderate - high VTE Device Contraindication: Treatment Not Indicated VTE Drug Contraindication: N/A - Med Ordered
[2021-12-31 01:46] LABS: COVID-19 Test Negative (Negative)
[2021-12-31 02:02] VITALS: BP 132/60; PULSE 67; RESP 18; O2SAT 97
[2021-12-31] MEDS: Morphine Sulfate 4 MG/ML CARTRIDGE IVPUSH (02:18)
[2021-12-31] MEDS: ondansetron HCL 4 MG/2 ML VIAL IVPUSH (02:18)
[2021-12-31 02:28] LABS: Lipase 10 U/L (8-78); Triglycerides 250 mg/dL
[2021-12-31] MEDS: Lactated Ringers 1,000 ML 200 ML IVCONT ×2 (03:51→09:02)
[2021-12-31 05:23] VITALS: BP 126/69; PULSE 54; RESP 20; TEMP 36.9; O2SAT 100
--- NOTE | 2021-12-31 05:37 | PC.NURSE ---
Pt arrived in ED Overflow around 0507. Pt A&OX3. Very sleepy but easily arousable. Speech is clear and appropriate. LS-Right upper and lower lobes dim. Denies cough/sob. Pt on 2L NC. BS+. Pt on regular diet. C/o abdominal pain then fell asleep (snoring). PP+, no edema. Pt has IV fluids infusing as ordered. Will continue to monitor.
--- NOTE | 2021-12-31 06:58 | PHA.MEDREC ---
Pharmacy Consult ? Medication Reconciliation Pharmacy has reviewed the medication reconciliation completed by Van. Med rec completed by nd 12/25/21 prior to last admission. No remarkable issues. Ariadna Layne, [place]
[2021-12-31] MEDS: HYDROmorphone HCl 0.5 MG/0.5 ML SYRINGE IVPUSH (07:13)
[2021-12-31 07:24] LABS: MANUAL DIFF FLAG NO
[2021-12-31 07:28] LABS: Basophils Percent Auto 0.1 % (0-2); Eosinophils Percent Auto 0.3 % (0-4); Hematocrit 29.9 % (42.0-52.0); Hemoglobin 9.4 g/dl (14.0-18.0); Imm Gran Abs Auto 0.28 X10*3/uL (0.00-0.03); Lymphocytes Absolute Auto 1.6 X10*3/uL (1.2-4.9); Lymphocytes Percent Auto 11.3 % (20-40); Mean Corpuscular HGB Conc 31.4 g/dl (31.0-36.0); Mean Corpuscular Hemoglobin 27.8 pg (27.0-33.0); Mean Corpuscular Volume 88.5 fL (80.0-98.0); Mean Platelet Volume 10.4 fL (9.4-12.4); Monocytes Absolute Auto 0.8 X10*3/uL (0.1-1.2); Monocytes Percent Auto 5.7 % (2-11); Neutrophils Absolute Auto 11.2 x10*3/uL (2.0-8.3); Neutrophils Percent Auto 80.6 % (45-73); Platelet Count 328 X10*3/uL (160-400); Red Blood Count 3.38 X10*6/uL (4.60-5.80); Red Cell Distribution Width 14.6 % (11.0-16.0); White Blood Count 13.9 X10*3/uL (4.8-10.8)
[2021-12-31 07:59] LABS: Anion Gap 13 (12-20); Blood Urea Nitrogen 21 mg/dL (9-16); Calcium 7.7 mg/dL (8.4-10.2); Carbon Dioxide 23 mmol/L (22-29); Chloride 107 mmol/L (96-108); Creatinine Clr Calc Pharmacy 116.4; Estimated Glomerular Filt Rate > 60; Glucose Random 122 mg/dL (60-115); Sodium 139 mmol/L (135-145)
[2021-12-31 08:04] LABS: Amylase 31 U/L (28-100)
[2021-12-31] MEDS: Enoxaparin Sodium 40 MG/0.4 ML SYRINGE SUBCUT (09:01)
[2021-12-31 10:07] VITALS: BP 139/66; PULSE 64; RESP 16; O2SAT 98
--- NOTE | 2021-12-31 10:52 | PC.NURSE ---
Pt resting in hospital bed intermitently snoring. When awoken pt c/o pain but falls asleep easily. offering no other complaints. Medicated per DEC. Belongings and callbell within reach.
[2021-12-31] MEDS: Buprenorphine/Naloxone 8/2 mg FILM 1 FILM SUBLINGUAL ×2 (11:38→15:03)
--- NOTE | 2021-12-31 12:23 | MHC.CM.PN ---
met with pt in ed pt lives with kwasi he goes to [facility] for suboxone he is not vaccinated he recently left [facility] 12/27 dc plan tbd
[2021-12-31 14:01] VITALS: BP 121/60; PULSE 57; RESP 14; O2SAT 95
--- NOTE | 2021-12-31 14:04 | HO.ADDICT_ITS ---
History of Present Illness Date of Service: 12/31/2021 Chief Complaint: Bacteremia, Pancreatitis Reason for Consult: Opioid use disorder Requesting physician: Emily Montes Sources of Information: patient interviewed and chart reviewed HPI Narrative: Patient is a 46 year old male with history of OUD currently medically admitted with pancreatitis and bacteremia. Per chart review patient self initiated discharge last week citing worsening pain and inadequate pain relief. Patient seen in ED overflow room 11. Awake, alert, somewhat engaged in interview. Reporting abdominal pain Discussed OUD, patient reports he has been in recovery for many years and has been on suboxone for >10years. Denies any opioid use. Denies any cocaine, alcohol or benzo use. Reports that he takes suboxone as prescribed, and last dose was last evening. Denies any issues with recovery. Review of Systems Constitutional: Reports as per HPI Diagnostics Vital Signs (24Hr): Vital Signs - 24 hr 12/30/21 23:00 12/30/21 23:40 12/31/21 00:26 Temperature 98.2 F 98.0 F 98.2 F Pulse Rate 62 62 62 Respiratory Rate 22 H 28 H 16 Blood Pressure 147/75 H 117/99 H 131/62 Pulse Oximetry 98 98 96 12/31/21 02:02 12/31/21 05:23 12/31/21 10:07 Temperature 98.4 F Pulse Rate 67 54 64 Respiratory Rate 18 20 16 Blood Pressure 132/60 126/69 139/66 Pulse Oximetry 97 100 98 12/31/21 14:01 Temperature Pulse Rate 57 Respiratory Rate 14 Blood Pressure 121/60 Pulse Oximetry 95 BMI result Body Mass Index 30.4 Labs Results: 12/31/21 07:00 12/31/21 07:00 Labs: Laboratory Results - last 48 hr 12/30/21 12/30/21 12/30/21 23:38 23:38 23:38 WBC 22.5 H RBC 3.99 L Hgb 11.2 L Hct 34.5 L MCV 86.5 MCH 28.1 MCHC 32.5 RDW 14.5 Plt Count 501 H D MPV 10.2 Immature Gran % (Auto) 3.4 H Neut % (Auto) 86.7 H Lymph % (Auto) 6.0 L Victoria % (Auto) 3.7 Eos % (Auto) 0.0 Baso % (Auto) 0.2 Lymph # (Auto) 1.4 [place] # (Auto) 0.8 Eos # (Auto) 0.0 Baso # (Auto) 0.0 Abs Immat Gran (auto) 0.77 H Absolute Neuts (auto) 19.5 H Absolute Nucleated RBC 0.000 Nucleated RBC % (auto) 0.0 Sodium 138 Potassium 4.3 Chloride 103 Carbon Dioxide 22 Anion Gap 17 BUN 26 H D Creatinine 1.22 Estim Creat Clear Calc 88.7 Estimated GFR > 60 Random Glucose 167 H D Lactic Acid 1.8 Calcium 8.4 D Total Bilirubin 1.0 AST 51 H ALT 91 H Alkaline Phosphatase 424 H D Total Protein 6.6 D Albumin 3.1 L Triglycerides 250 Amylase Lipase 10 COVID-19 (KB) COVID-19 Clin Com 12/31/21 12/31/21 12/31/21 01:24 07:00 07:00 WBC 13.9 H RBC 3.38 L Hgb 9.4 L Hct 29.9 L MCV 88.5 MCH 27.8 MCHC 31.4 RDW 14.6 Plt Count 328 D MPV 10.4 Immature Gran % (Auto) 2.0 H Neut % (Auto) 80.6 H Lymph % (Auto) 11.3 L Victoria % (Auto) 5.7 Eos % (Auto) 0.3 Baso % (Auto) 0.1 Lymph # (Auto) 1.6 Victoria # (Auto) 0.8 Eos # (Auto) 0.0 Baso # (Auto) 0.0 Abs Immat Gran (auto) 0.28 H Absolute Neuts (auto) 11.2 H Absolute Nucleated RBC 0.000 Nucleated RBC % (auto) 0.0 Sodium 139 Potassium 4.0 Chloride 107 Carbon Dioxide 23 Anion Gap 13 BUN 21 H Creatinine 0.93 Estim Creat Clear Calc 116.4 Estimated GFR > 60 Random Glucose 122 H Lactic Acid Calcium 7.7 L D Total Bilirubin AST ALT Alkaline Phosphatase Total Protein Albumin Triglycerides Amylase 31 Lipase COVID-19 (KB) Negative COVID-19 Clin Com See Note 12/31/21 07:01 WBC RBC Hgb Hct MCV MCH MCHC RDW Plt Count MPV Immature Gran % (Auto) Neut % (Auto) Lymph % (Auto) Victoria % (Auto) Eos % (Auto) Baso % (Auto) Lymph # (Auto) [place] # (Auto) Eos # (Auto) Baso # (Auto) Abs Immat Gran (auto) Absolute Neuts (auto) Absolute Nucleated RBC Nucleated RBC % (auto) Sodium Potassium Chloride Carbon Dioxide Anion Gap BUN Creatinine Estim Creat Clear Calc Estimated GFR Random Glucose Lactic Acid Calcium Total Bilirubin AST ALT Alkaline Phosphatase Total Protein Albumin Triglycerides Amylase Cancelled Lipase COVID-19 (KB) COVID-19 Clin Com Imaging Radiology Impressions: ITS Impressions Chest X-Ray 12/31/21 01:15 IMPRESSION: Marked improvement in the right-sided airspace consolidation. Abdomen/Pelvis CT 12/31/21 03:35 IMPRESSION: 1. Improving consolidation in the right lower and right middle lobes as compared to prior. 2. Mild peripancreatic fat stranding with involvement of the adjacent adrenal glands. This it is similar to prior and could correspond to acute pancreatitis. Recommend correlation with serum amylase and lipase. 3. Hepatomegaly. Abdomen Ultrasound 12/31/21 08:15 IMPRESSION: 12.4 mild hepatic steatosis without focal lesion. Echogenic body and the head of the pancreas. The tail is obscured by gas. The right kidney, and CBD appears unremarkable. Mental Status Exam Mental Status Exam Patient Appearance: Appropriate (gramacing) Level of Consciousness: Awake Patient Behavior: Appropriate Affect Description: Blunted Speech Pattern: Clear Medications Medications Current Medications Acetaminophen (Acetaminophen 325 Mg Tablet) 650 mg PO Q6H PRN PRN Reason: Pain, Mild (Pain Scale 1-3) Buprenorphine/Naloxone (Buprenorphine/Naloxone 8/2 Mg Film) 1 film SUBLINGUAL BID@0900,1500 [facility] Last Admin: 12/31/21 11:38 Dose: 1 film Documented by: Enoxaparin Sodium (Enoxaparin Sodium 40 Mg/0.4 Ml Syringe) 40 mg SUBCUT Q24H [facility] Last Admin: 12/31/21 09:01 Dose: 40 mg Documented by: Hydromorphone HCl (Hydromorphone Hcl 0.5 Mg/0.5 Ml Syringe) 1 mg IVPUSH Q4H PRN; Protocol PRN Reason: Pain, Severe (Pain Scale 7-10) Ceftriaxone Sodium 1 gm/ (Sodium Chloride) 50 mls @ 100 mls/hr IV Q24H [facility] Lactated Ringer's (Lr) 1,000 mls @ 125 mls/hr IVCONT .Q8H [facility] Last Infusion: 12/31/21 13:47 Dose: Infused Documented by: Ondansetron HCl (Ondansetron Hcl 4 Mg/2 Ml Vial) 4 mg IVPUSH Q8H PRN PRN Reason: Nausea and Vomiting Simethicone (Simethicone 40 Mg/0.6 Ml 30 Ml Drops.Susp) 40 mg PO QID [facility] Last Admin: 12/31/21 12:21 Dose: 40 mg Documented by: Sodium Chloride (0.9 % Sodium Chloride Flush 3 Ml Syringe) 3 ml IVFLUSH QSHIFT [facility] Last Admin: 12/31/21 08:57 Dose: Not Given Documented by: Allergies Allergies Allergy/AdvReac Type Severity Reaction Status Date / Time No Known Allergies Allergy Verified 12/25/21 19:49 [No Known Allergies*] Assessment & Plan Assessment & Plan (1) Opioid use disorder: Status: Acute Code(s): F11.90 - Opioid use, unspecified, uncomplicated Assessment and Plan: * SUboxone restarted as prescribed outpatient * case discussed with attending provider * pain medication increased I spent ___30___ minutes with the patient and/or on the patient floor today, greater than?50% of which was spent counseling/coordinating care. PMFSH Past Medical History Medical History Heroin addiction Family History Family History Other No family history of coronary artery disease Surgical History Surgical History No pertinent past surgical history Social History Social History Household Members: Significant Other Housing: Apartment Do you presently have visiting nurse or other home services: No Alcohol intake: never Patient Tobacco Use Status: Never used Tobacco Substance Use Type: Former Substance User Advance Directives: No Advance Directives Information Provided: Yes Advance Directives Date on File: 12/26/21 service: No
--- NOTE | 2021-12-31 14:06 | P.CNID_ITS ---
History of Present Illness Data of Consult Service Date: 12/31/21 Requesting physician: Emily Montes Primary Care Provider: Unknown Physician HPI Reason for consult: abdominal discomfort He presented to hospital with central abdominal discomfort and no diarrhea last two days He is day 7/14 supposedly Levaquin for strep pneumonia bacteremia related to RLL pneumonia. He left AMA but was not hypoxic on leaving. He has improved cough. He says COVID was negative at [facility]. Review of Systems Review of Systems: Yes all other systems are reviewed and are negative [facility] Past Medical History Medical History Heroin addiction Family History Family History Other No family history of coronary artery disease Surgical History Surgical History No pertinent past surgical history Social History Social History Household Members: Significant Other Housing: Apartment Do you presently have visiting nurse or other home services: No Alcohol intake: never Patient Tobacco Use Status: Never used Tobacco Substance Use Type: Former Substance User Advance Directives: No Advance Directives Information Provided: Yes Advance Directives Date on File: 12/26/21 service: No Meds Allergies Allergy/AdvReac Type Severity Reaction Status Date / Time No Known Allergies Allergy Verified 12/25/21 19:49 [No Known Allergies*] Active Medications: Current Medications Acetaminophen (Acetaminophen 325 Mg Tablet) 650 mg PO Q6H PRN PRN Reason: Pain, Mild (Pain Scale 1-3) Buprenorphine/Naloxone (Buprenorphine/Naloxone 8/2 Mg Film) 1 film SUBLINGUAL BID@0900,1500 [facility] Last Admin: 12/31/21 11:38 Dose: 1 film Documented by: Enoxaparin Sodium (Enoxaparin Sodium 40 Mg/0.4 Ml Syringe) 40 mg SUBCUT Q24H [facility] Last Admin: 12/31/21 09:01 Dose: 40 mg Documented by: Hydromorphone HCl (Hydromorphone Hcl 0.5 Mg/0.5 Ml Syringe) 1 mg IVPUSH Q4H PRN; Protocol PRN Reason: Pain, Severe (Pain Scale 7-10) Ceftriaxone Sodium 1 gm/ (Sodium Chloride) 50 mls @ 100 mls/hr IV Q24H [facility] Lactated Ringer's (Lr) 1,000 mls @ 125 mls/hr IVCONT .Q8H [facility] Last Infusion: 12/31/21 13:47 Dose: Infused Documented by: Ondansetron HCl (Ondansetron Hcl 4 Mg/2 Ml Vial) 4 mg IVPUSH Q8H PRN PRN Reason: Nausea and Vomiting Simethicone (Simethicone 40 Mg/0.6 Ml 30 Ml Drops.Susp) 40 mg PO QID [facility] Last Admin: 12/31/21 12:21 Dose: 40 mg Documented by: Sodium Chloride (0.9 % Sodium Chloride Flush 3 Ml Syringe) 3 ml IVFLUSH QSHIFT [facility] Last Admin: 12/31/21 08:57 Dose: Not Given Documented by: Home Medications Medication Instructions Recorded Confirmed Last Taken Type buprenorphine 8 mg-naloxone 2 mg 2 strip SUBLINGUAL DAILY 12/26/21 12/31/21 12/30/21 History sublingual film Physical Exam Vital Signs: Vital Signs: Last Vital Signs Temp 98.4 F 12/31/21 05:23 Pulse 57 12/31/21 14:01 Resp 14 12/31/21 14:01 BP 121/60 12/31/21 14:01 Pulse Ox 95 12/31/21 14:01 BMI result Body Mass Index 30.4 Const: General: cooperative HEENT: Head: Yes normal to inspection Mouth: Normal oral and palatal mucosa present Resp: Effort & Inspection: normal respiratory effort Cardio: Rate: regular rate Rhythm: regular rhythm GI: Other: discomfort central abdomen, decreased bowel sounds Skin: General skin exam: no rashes or lesions noted Results Labs CBC & Chem 7: 12/31/21 07:00 12/31/21 07:00 Labs: Short CBC 12/30/21 12/31/21 Range/Units 23:38 07:00 WBC 22.5 H 13.9 H (4.8-10.8) X10*3/uL Hgb 11.2 L 9.4 L (14.0-18.0) g/dl Hct 34.5 L 29.9 L (42.0-52.0) % Plt Count 501 H D 328 D (160-400) X10*3/uL BMP 03/22/22 03/23/22 23:38 07:00 Sodium 138 139 Potassium 4.3 4.0 Chloride 103 107 Carbon Dioxide 22 23 BUN 26 H D 21 H Creatinine 1.22 0.93 Calcium 8.4 D 7.7 L D Liver Function 12/30/21 Range/Units 23:38 Total Bilirubin 1.0 (0.0-1.0) mg/dL AST 51 H (5-37) U/L ALT 91 H (0-40) U/L Alkaline Phosphatase 424 H D (39-117) U/L Albumin 3.1 L (3.5-5.0) g/dL Assessment and Plan (1) Acute pancreatitis: Status: Acute This may be due to viral syndrome Also infection like HIV can cause this (2) Streptococcal pneumonia: Status: Acute Would give IV Zosyn while in house to complete 7/14 days of therapy and then po Augmentin to finish 14 days I am concerned Levaquin could be implicated in abdominal pain/pancreatitis. Ceftriaxone has propensity to cause cholestatic picture. Check HIV test. (3) Bacteremia: Status: Acute
--- NOTE | 2021-12-31 14:17 | W.PM.IDCN ---
History of Present Illness Data of Consult Service Date: 12/31/21 Primary Care Provider: Unknown Physician [facility] Past Medical History Medical History Heroin addiction Family History Family History Other No family history of coronary artery disease Surgical History Surgical History No pertinent past surgical history Social History Social History Household Members: Significant Other Housing: Apartment Do you presently have visiting nurse or other home services: No Alcohol intake: never Patient Tobacco Use Status: Never used Tobacco Substance Use Type: Former Substance User Advance Directives: No Advance Directives Information Provided: Yes Advance Directives Date on File: 12/26/21 service: No Meds Allergies Allergy/AdvReac Type Severity Reaction Status Date / Time No Known Allergies Allergy Verified 12/25/21 19:49 [No Known Allergies*] Active Medications: Current Medications Acetaminophen (Acetaminophen 325 Mg Tablet) 650 mg PO Q6H PRN PRN Reason: Pain, Mild (Pain Scale 1-3) Buprenorphine/Naloxone (Buprenorphine/Naloxone 8/2 Mg Film) 1 film SUBLINGUAL BID@0900,1500 [facility] Last Admin: 12/31/21 11:38 Dose: 1 film Documented by: Enoxaparin Sodium (Enoxaparin Sodium 40 Mg/0.4 Ml Syringe) 40 mg SUBCUT Q24H [facility] Last Admin: 12/31/21 09:01 Dose: 40 mg Documented by: Hydromorphone HCl (Hydromorphone Hcl 0.5 Mg/0.5 Ml Syringe) 1 mg IVPUSH Q4H PRN; Protocol PRN Reason: Pain, Severe (Pain Scale 7-10) Lactated Ringer's (Lr) 1,000 mls @ 125 mls/hr IVCONT .Q8H [facility] Last Infusion: 12/31/21 13:47 Dose: Infused Documented by: Piperacillin Sod/Tazobactam (Sod 3.375 gm/ Sodium Chloride) 50 mls @ 100 mls/hr IV Q8H [facility] Ondansetron HCl (Ondansetron Hcl 4 Mg/2 Ml Vial) 4 mg IVPUSH Q8H PRN PRN Reason: Nausea and Vomiting Simethicone (Simethicone 40 Mg/0.6 Ml 30 Ml Drops.Susp) 40 mg PO QID [facility] Last Admin: 12/31/21 14:09 Dose: 40 mg Documented by: Sodium Chloride (0.9 % Sodium Chloride Flush 3 Ml Syringe) 3 ml IVFLUSH QSHIFT [facility] Last Admin: 12/31/21 08:57 Dose: Not Given Documented by: Home Medications Medication Instructions Recorded Confirmed Last Taken Type buprenorphine 8 mg-naloxone 2 mg 2 strip SUBLINGUAL DAILY 12/26/21 12/31/21 12/30/21 History sublingual film Physical Exam Vital Signs: Vital Signs: Last Vital Signs Temp 98.4 F 12/31/21 05:23 Pulse 57 12/31/21 14:01 Resp 14 12/31/21 14:01 BP 121/60 12/31/21 14:01 Pulse Ox 95 12/31/21 14:01 BMI result Body Mass Index 30.4 Results Labs CBC & Chem 7: 12/31/21 07:00 12/31/21 07:00 Labs: Short CBC 12/30/21 12/31/21 Range/Units 23:38 07:00 WBC 22.5 H 13.9 H (4.8-10.8) X10*3/uL Hgb 11.2 L 9.4 L (14.0-18.0) g/dl Hct 34.5 L 29.9 L (42.0-52.0) % Plt Count 501 H D 328 D (160-400) X10*3/uL BMP 12/30/21 12/31/21 23:38 07:00 Sodium 138 139 Potassium 4.3 4.0 Chloride 103 107 Carbon Dioxide 22 23 BUN 26 H D 21 H Creatinine 1.22 0.93 Calcium 8.4 D 7.7 L D Liver Function 12/30/21 Range/Units 23:38 Total Bilirubin 1.0 (0.0-1.0) mg/dL AST 51 H (5-37) U/L ALT 91 H (0-40) U/L Alkaline Phosphatase 424 H D (39-117) U/L Albumin 3.1 L (3.5-5.0) g/dL Assessment and Plan (1) Acute pancreatitis: Status: Acute This may be due to viral syndrome Also infection like HIV can cause this (2) Streptococcal pneumonia: Status: Acute Would give IV Zosyn while in house to complete 7/14 days of therapy and then po Augmentin to finish 14 days I am concerned Levaquin could be implicated in abdominal pain/pancreatitis. Ceftriaxone has propensity to cause cholestatic picture. Also COVID positive on 12/25 may be contributory Check HIV test. (3) Bacteremia: Status: Acute
[2021-12-31] MEDS: Piperacillin Sodium/Tazobactam 3.375 GM in 0.9 % Sodium Chloride 50 ML IV ×2 (15:03→23:21)
[2021-12-31] MEDS: Lactated Ringers 1,000 ML 125 ML IVCONT ×2 (15:03→19:30)
[2021-12-31 16:56] LABS: HIV AB/AG Nonreactive (Nonreactive); HIV Num 1 0.07 S/CO (0.00-0.99)
[2021-12-31 17:48] VITALS: BP 141/69; PULSE 51; RESP 18; TEMP 36.7; O2SAT 92
--- NOTE | 2021-12-31 19:12 | PC.NURSE ---
A&OX3. Speech is clear and appropriate. LS-CTA. No cough and no sob. BS+. Pt tolerating diet. Denies N/V/D. IV fluids infusing as ordered. Patient ambulates with a steady gait. No c/o pain. Plan-continue w/ Suboxone and Simethicone as well as Zosyn. Will continue to monitor.
--- NOTE | 2021-12-31 19:40 | PC.NURSE ---
Pt A&OX3, Pleasant and cooperative, sleepy/resting. Family at bedside. Speech is clear and appropriate, very soft voice. LS-CTA. No cough or sob. BS+. NG tube in right nare draining dark brown fluid at LWS. Colostomy bad intact with no fecal matter. IV fluids infusing as ordered. Urinal at bedside. Bed alarm on for safety. Pt c/o 12/18 abdominal discomfort (states not pain). Hot pack applied with relief. Will continue to yodit.
[2022-01-01] MEDS: Lactated Ringers 1,000 ML 125 ML IVCONT (03:39)
[2022-01-01 06:02] VITALS: BP 140/56; PULSE 75; RESP 18; O2SAT 98
[2022-01-01] MEDS: Piperacillin Sodium/Tazobactam 3.375 GM in 0.9 % Sodium Chloride 50 ML IV ×3 (06:04→23:19)
[2022-01-01 06:13] LABS: Hematocrit 30.7 % (42.0-52.0); Hemoglobin 9.7 g/dl (14.0-18.0); Mean Corpuscular HGB Conc 31.6 g/dl (31.0-36.0); Mean Corpuscular Hemoglobin 28.3 pg (27.0-33.0); Mean Corpuscular Volume 89.5 fL (80.0-98.0); Mean Platelet Volume 10.5 fL (9.4-12.4); Platelet Count 318 X10*3/uL (160-400); Red Blood Count 3.43 X10*6/uL (4.60-5.80); Red Cell Distribution Width 14.4 % (11.0-16.0); White Blood Count 15.4 X10*3/uL (4.8-10.8)
[2022-01-01 06:40] LABS: Anion Gap 12 (12-20); Blood Urea Nitrogen 13 mg/dL (9-16); Carbon Dioxide 24 mmol/L (22-29); Chloride 108 mmol/L (96-108); Creatinine Clr Calc Pharmacy 121.6; Estimated Glomerular Filt Rate > 60; Glucose Random 92 mg/dL (60-115); Potassium 4.3 mmol/L (3.3-5.1); Sodium 140 mmol/L (135-145)
[2022-01-01] MEDS: Enoxaparin Sodium 40 MG/0.4 ML SYRINGE SUBCUT (08:40)
[2022-01-01] MEDS: Acetaminophen 325 MG TABLET 650 MG PO ×2 (08:40→23:19)
[2022-01-01] MEDS: Buprenorphine/Naloxone 8/2 mg FILM 1 FILM SUBLINGUAL ×2 (08:41→15:26)
[2022-01-01] MEDS: 0.9 % Sodium Chloride Flush 3 ML SYRINGE IVFLUSH ×3 (08:41→23:22)
[2022-01-01 08:42] LABS: Alanine Aminotransferase 50 U/L (0-40); Albumin Level 2.5 g/dL (3.5-5.0); Bilirubin Direct 0.5 mg/dL (0.0-0.5); Total Protein 5.4 g/dL (6.5-8.0)
[2022-01-01 08:52] VITALS: BP 151/72; PULSE 81; RESP 20; O2SAT 97
[2022-01-01 08:56] LABS: Alkaline Phosphatase 267 U/L (39-117); Aspartate Amino Transferase 25 U/L (5-37)
--- NOTE | 2022-01-01 14:02 | P.PNIM_ITS ---
Subjective Subjective Date of Service: 01/01/22 Interval History: the patient was seen and evaluated this morning Laying in bed, feels significant improvement in his abdominal pain Able to tolerate some diet Denies any fever, chills or shortness of breath No reported other overnight events. Systemic review: No fever, chills but reported back pain and generalized weakness No chest pain, palpitation No shortness of breath or coughing No abdominal pain, nausea or vomiting No urinary symptoms No any rash or wounds Physical Exam Vital Signs: Vital Signs: Last Vital Signs Temp 98.1 F 12/31/21 17:48 Pulse 81 01/01/22 08:52 Resp 20 01/01/22 08:52 BP 151/72 H 01/01/22 08:52 Pulse Ox 97 01/01/22 08:52 BMI result Body Mass Index 30.4 Const: Other: Constitutional : Alert, oriented, not in distress Neck : Normal inspection, Supple Cardiovascular : RRR, S1 S2, trace bilateral lower extremity edema Respiratory : Good bilateral air entry, no crackles, wheezes or rhonchi Gastrointestinal: soft, lax, Normal bowel sounds, mild superficial generalized tenderness mainly in the epigastric area Skin : Warm, Dry Neurological : Alert & oriented x3, No focal deficit Objective Data Active Medications Acetaminophen (Acetaminophen 325 Mg Tablet) 650 mg PO Q6H PRN PRN Reason: Pain, Mild (Pain Scale 1-3) Last Admin: 01/01/22 08:40 Dose: 650 mg Documented by: LYUDMILA Buprenorphine/Naloxone (Buprenorphine/Naloxone 8/2 Mg Film) 1 film SUBLINGUAL BID@0900,1500 [facility] Last Admin: 01/01/22 08:41 Dose: 1 film Documented by: LYUDMILA Enoxaparin Sodium (Enoxaparin Sodium 40 Mg/0.4 Ml Syringe) 40 mg SUBCUT Q24H [facility] Last Admin: 01/01/22 08:40 Dose: 40 mg Documented by: LYUDMILA Hydromorphone HCl (Hydromorphone Hcl 0.5 Mg/0.5 Ml Syringe) 0.5 mg IVPUSH Q4H PRN; Protocol PRN Reason: Pain, Severe (Pain Scale 7-10) Piperacillin Sod/Tazobactam (Sod 3.375 gm/ Sodium Chloride) 50 mls @ 100 mls/hr IV Q8H [facility] Last Infusion: 01/01/22 06:34 Dose: 0 mls/hr Documented by: GODWIN Ondansetron HCl (Ondansetron Hcl 4 Mg/2 Ml Vial) 4 mg IVPUSH Q8H PRN PRN Reason: Nausea and Vomiting Simethicone (Simethicone 40 Mg/0.6 Ml 30 Ml Drops.Susp) 40 mg PO QID [facility] Last Admin: 01/01/22 08:41 Dose: 40 mg Documented by: LYUDMILA Sodium Chloride (0.9 % Sodium Chloride Flush 3 Ml Syringe) 3 ml IVFLUSH QSHIFT [facility] Last Admin: 01/01/22 08:41 Dose: 3 ml Documented by: LYUDMILA Labs CBC & Chem 7: 01/01/22 05:36 01/01/22 05:36 Labs: Laboratory Results - last 24 hr 12/31/21 01/01/22 01/01/22 15:53 05:36 05:36 MCV 89.5 MCH 28.3 MCHC 31.6 RDW 14.4 Plt Count 318 MPV 10.5 Absolute Nucleated RBC 0.000 Nucleated RBC % (auto) 0.0 Anion Gap 12 Estim Creat Clear Calc 121.6 Estimated GFR > 60 Random Glucose 92 Calcium 8.0 L Total Bilirubin 1.0 Direct Bilirubin 0.5 AST 25 D ALT 50 H Alkaline Phosphatase 267 H D Total Protein 5.4 L Albumin 2.5 L HIV 1&2 Ab/P24 Ag 4thGn Nonreactive Microbiology Microbiology Results: Microbiology 12/31/21 00:13 Blood Culture - Preliminary Blood - Venous No growth after 24 hours. 12/31/21 00:12 Blood Culture - Preliminary Blood - Venous No growth after 24 hours. Assessment and Plan (1) Acute pancreatitis: Status: Acute (2) Streptococcal pneumonia: Status: Acute (3) Sepsis: Status: Acute Plan 46-year-old male with past medical history of opioid use disorder presents to the hospital after leaving [place] on the . He was being treated for bacteremia in the setting of pneumonia, blood cultures show strep pneumonia he is now also complaining of abdominal pain found to have pancreatitis # sepsis in the setting of recent bacteremia secondary to strep pneumonia Repeated Blood cultures remain negative Id recommended Zosyn Plan to treat with total of 2 weeks of antibiotics # pneumonia improvement of infiltrates on chest x-ray, at this time will continue antibiotics # acute pancreatitis, transaminitis has epigastric abdominal pain and CT evidence of pancreatitis Liver enzymes improving could be secondary to viral illness, recent COVID Discontinue fluids abdominal ultrasound did not show any gallbladder disease DVT prophylaxis: Lovenox Quality Stroke Does the patient have a stroke diagnosis?: No VTE Prior VTE?: No VTE Risk Level:: Medical - moderate - high VTE Device Contraindication: Treatment Not Indicated VTE Drug Contraindication: N/A - Med Ordered
[2022-01-01 14:48] VITALS: BP 131/68; PULSE 76; RESP 17; TEMP 36.8; O2SAT 98
--- NOTE | 2022-01-01 14:53 | PC.NURSE ---
pt appears more altered to t/w at this time. pt was speaking about a purple figure walking around to visit the children . pt just had a visit from his mother. VSS at this time without a temp. Dr. Montes made aware, will continue to monitor pt.
--- NOTE | 2022-01-01 15:11 | PC.NURSE ---
swelling noted to HAYLEE lower extremities. pt IVF d/c - dr. segovia made aware. will monitor.
--- NOTE | 2022-01-01 15:31 | PC.NURSE ---
dr Jyoti schaeffer to evaluate pt
[2022-01-01 16:00] VITALS: BP 126/58; PULSE 72; RESP 16; TEMP 36.1; O2SAT 99
[2022-01-01 18:06] VITALS: BP 141/76; PULSE 83; RESP 18; TEMP 36.7; O2SAT 91
[2022-01-01] MEDS: ondansetron HCL 4 MG/2 ML VIAL IVPUSH (20:32)
[2022-01-02] VITALS: BP 101/59; PULSE 84; RESP 18; TEMP 36.9; O2SAT 92
[2022-01-02 02:12] LABS: LDL Cholesterol Direct 152 mg/dL (<100)
[2022-01-02 03:43] VITALS: BP 116/69; PULSE 78; RESP 18; TEMP 36.6; O2SAT 92
[2022-01-02] MEDS: Piperacillin Sodium/Tazobactam 3.375 GM in 0.9 % Sodium Chloride 50 ML IV (06:08)
[2022-01-02 06:49] LABS: Hematocrit 32.1 % (42.0-52.0); Hemoglobin 9.8 g/dl (14.0-18.0); Mean Corpuscular HGB Conc 30.5 g/dl (31.0-36.0); Mean Corpuscular Hemoglobin 27.9 pg (27.0-33.0); Mean Corpuscular Volume 91.5 fL (80.0-98.0); Mean Platelet Volume 10.3 fL (9.4-12.4); Platelet Count 444 X10*3/uL (160-400); Red Blood Count 3.51 X10*6/uL (4.60-5.80); Red Cell Distribution Width 14.5 % (11.0-16.0); White Blood Count 11.4 X10*3/uL (4.8-10.8)
[2022-01-02 07:06] LABS: Anion Gap 12 (12-20); Blood Urea Nitrogen 15 mg/dL (9-16); Calcium 7.9 mg/dL (8.4-10.2); Carbon Dioxide 26 mmol/L (22-29); Chloride 107 mmol/L (96-108); Creatinine Clr Calc Pharmacy 107.2; Estimated Glomerular Filt Rate > 60; Glucose Random 107 mg/dL (60-115); Potassium 4.3 mmol/L (3.3-5.1); Sodium 141 mmol/L (135-145)
[2022-01-02 07:09] LABS: Alanine Aminotransferase 44 U/L (0-40); Albumin Level 2.6 g/dL (3.5-5.0); Alkaline Phosphatase 229 U/L (39-117); Aspartate Amino Transferase 30 U/L (5-37); Bilirubin Direct 0.4 mg/dL (0.0-0.5); Bilirubin Total 0.7 mg/dL (0.0-1.0); Total Protein 5.8 g/dL (6.5-8.0)
[2022-01-02 07:52] VITALS: BP 134/77; PULSE 53; RESP 18; TEMP 36.8; O2SAT 95
[2022-01-02] MEDS: Enoxaparin Sodium 40 MG/0.4 ML SYRINGE SUBCUT (09:19)
[2022-01-02] MEDS: 0.9 % Sodium Chloride Flush 3 ML SYRINGE IVFLUSH (09:19)
[2022-01-02] MEDS: Buprenorphine/Naloxone 8/2 mg FILM 1 FILM SUBLINGUAL (09:19)
--- NOTE | 2022-01-02 11:43 | PM.DS ---
DS: Providers Provider Date of Service: 01/02/22 Date of admission: 12/31/21 02:42 Primary care physician: Unknown Physician Consults: 12/31/21 01:29 Consult to Infectious Diseases Routine Consulting Provider: Amarilis Lacey Reason for consultation: ravin IGNACIO Has provider been notified: No 12/31/21 08:49 Addiction Medicine Routine Consulting Provider: Carley Ambriz Reason for consultation: opioid usage disorder, left AMA for pain control problem DS: Diagnosis Discharge Diagnosis (1) Acute pancreatitis: Status: Acute (2) Streptococcal pneumonia: Status: Acute (3) Sepsis: Status: Acute (4) Opioid use disorder: Status: Acute DS: Summary Hospital Course Hospital Course: Admission note HPI This is a 46-year-old male with past medical history of opioid dependence, who was initially admitted to the hospital on 12/26 for bacteremia secondary to strep pneumonia and was found to have chest x-ray evidence of right-sided pneumonia, patient was admitted by left AMA onot being listened to and he was not having adequate pain control.? Patient returned today as his had increased weakness as well as epigastric to left-sided abdominal pain that is 10/10, constant, radiating to the left of his abdomen as well as to the back, the pain has been worsened today, associated with low oral intake, nausea with no vomiting, no diarrhea constipation.? Patient denies any fever but has chills, reports no alcohol abuse Patient otherwise denies any chest pain, shortness of breath has improved, cough is improved, denies any diarrhea or constipation, no urinary symptoms and no lower extremity edema On arrival to the ED patient was found to be hemodynamically stable with no significant abnormal vitals Labs are significant for WBC count of 22.5 (WBC increased from 13 on ) hemoglobin of 11.2, hematocrit of 34.5, BUN of 26, creatinine of 1.22 which is significantly improved from his recent admission, AST of 51, ALT of 91, alk-phos of 424, CT abdomen showing evidence of pancreatitis which was also seen on CT abdomen on the . Hospital course The patient was admitted for treatment of sepsis in the setting of recent bacteremia secondary to strep pneumonia. Blood cultures remain negative as he was treated with IV Zosyn. Id evaluated the patient and recommended to finish total of 2 weeks of antibiotics. The patient has taking Levaquin at home for the last 5 days since his negative blood culture from December 26. He will be discharged to finish 6 more days of Levaquin with total of 2 weeks of antibiotics. His abdominal pain was evaluated by CT scan in the emergency showing and evidence of pancreatitis along with blood work suggestive of mild transaminitis. Liver enzymes improved as well as his abdominal pain as he was treated with IV fluids and pain medications. abdominal ultrasound did not show any gallbladder disease. Diet advanced with good response as simethicone Was added for abdominal distension. Evaluated by addiction team who continued his Suboxone with recommendation to follow-up as outpatient. Continue Levaquin for 6 more days Drink plenty of fluids and advance your diet as tolerated Time Spent with Patient Time attestation: Total time spent providing and/or coordinating discharge services: Discharge coordination time: Greater than 30 minutes Quality: Stroke Does the patient have a stroke diagnosis?: No Physical Exam Vital Signs: Vital Signs: Last Vital Signs Temp 98.2 F 01/02/22 07:52 Pulse 53 01/02/22 07:52 Resp 18 01/02/22 07:52 BP 134/77 01/02/22 07:52 Pulse Ox 95 01/02/22 07:52 BMI result Body Mass Index 30.4 Const: Other: Constitutional : Alert, oriented, not in distress Neck : Normal inspection, Supple Cardiovascular : RRR, S1 S2, trace bilateral lower extremity edema Respiratory : Good bilateral air entry, no crackles, wheezes or rhonchi Gastrointestinal: soft, lax, Normal bowel sounds, no tenderness Skin : Warm, Dry Neurological : Alert & oriented x3, No focal deficit DS: Data Data Completed and Pending Labs on day of discharge: Laboratory Results - last 24 hr 12/30/21 01/02/22 01/02/22 23:38 05:53 05:53 WBC 11.4 H RBC 3.51 L Hgb 9.8 L Hct 32.1 L MCV 91.5 MCH 27.9 MCHC 30.5 L RDW 14.5 Plt Count 444 H D MPV 10.3 Absolute Nucleated RBC 0.000 Nucleated RBC % (auto) 0.0 Sodium 141 Potassium 4.3 Chloride 107 Carbon Dioxide 26 Anion Gap 12 BUN 15 Creatinine 1.01 Estim Creat Clear Calc 107.2 Estimated GFR > 60 Random Glucose 107 Calcium 7.9 L Total Bilirubin Direct Bilirubin AST ALT Alkaline Phosphatase Total Protein Albumin LDL Cholesterol Direct 152 H 01/02/22 05:53 WBC RBC Hgb Hct MCV MCH MCHC RDW Plt Count MPV Absolute Nucleated RBC Nucleated RBC % (auto) Sodium Potassium Chloride Carbon Dioxide Anion Gap BUN Creatinine Estim Creat Clear Calc Estimated GFR Random Glucose Calcium Total Bilirubin 0.7 Direct Bilirubin 0.4 AST 30 ALT 44 H Alkaline Phosphatase 229 H Total Protein 5.8 L Albumin 2.6 L LDL Cholesterol Direct Preliminary micro results at discharge 12/31/21 00:13 Blood Culture - Preliminary Blood - Venous No growth after 48 hours. 12/31/21 00:12 Blood Culture - Preliminary Blood - Venous No growth after 48 hours. Discharge Plan Discharge Patient Disposition: Home, Self-Care Discharge Diagnosis: Acute pancreatitis Referrals: Physician,Unknown J [Primary Care Provider] - 1 Week Discharge Medications: New simethicone [[place] Gas Relief] 40 mg/0.6 mL Drops,Suspension 40 mg PO QID PRN (Reason: Abdominal Distention) 7 Days Qty: 30 0RF Continued buprenorphine-naloxone 8-2 mg film 2 strip sublingual DAILY 0RF levofloxacin 750 mg tablet 750 mg PO DAILY 14 Days Qty: 14 0RF Discharge Orders: Discharge Order (Routine); Ordered 01/02/22 Ordered By: Emily Montes Diet: advance to usual diet Activity on Discharge: As tolerated Stand Alone Forms: Patient Portal Discharge page Care Plan Goals: Read below Health Concerns: Read below Plan of Treatment: Read below Assessment: Admitted to the hospital for treatment of sepsis. Treated with IV antibiotics with good response as you were evaluated by infectious disease specialist. Images showed improvement of the pneumonia. You had abdominal pain which is believed to be secondary to pancreas inflammation. Responded well to IV fluid and pain medications. Continue Levaquin for 6 more days Drink plenty of fluids and advance your diet as tolerated
== END 2022-01-02 12:31 | disposition home or self-care (01) | DRG 720 ==
LOC: HO.ED 12-31 01:25 → HO.EDOVER 12-31 02:45 → HO.S3 01-01 17:28
PROVIDERS: Internal Medicine; Admitting Provider Internal Medicine; Emergency Provider Internal Medicine; Visit Provider Student in an Organized Health Care Education/Training Program
DX: A41.9 Sepsis, unspecified organism (principal); K85.90 Acute pancreatitis without necrosis or infection, unspecified; J13 Pneumonia due to Streptococcus pneumoniae; F11.20 Opioid dependence, uncomplicated; Z20.822 Contact with and (suspected) exposure to COVID-19; Z79.899 Other long term (current) drug therapy
CPT/HCPCS: 36415; 71045; 74176; 76705; 80048; 80053; 80076; 82150; 83605; 83690; 83721; 84478; 85025; 85027; 87040; 87389; 87635; 99285; J0696; J1170; J1650; J2270; J2405; J2543

== ENCOUNTER 2022-03-03 15:10 | Emergency (ER) | payer OTHER, SELFPAY ==
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
[2022-03-03 15:32] VITALS: BP 152/100; PULSE 92; O2SAT 99
[2022-03-03 15:49] VITALS: BP 145/90; PULSE 90; RESP 17; TEMP 36.9; O2SAT 99; BMI 27.8
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
[2022-03-03] MEDS: Diphth,Pertus(ACell),Tet Adult 0.5 ML SYRINGE IM (17:24)
[2022-03-03] MEDS: Ibuprofen 800 MG TABLET PO (17:24)
== END 2022-03-03 17:31 | disposition home or self-care (01) ==
PROVIDERS: Emergency Provider Emergency Medicine Emergency Medical Services
DX: S20.219A Contusion of unspecified front wall of thorax, initial encounter (principal); V47.5XXA Car driver injured in collision with fixed or stationary object in traffic accident, initial encounter; F12.90 Cannabis use, unspecified, uncomplicated; Y93.9 Activity, unspecified; Y92.414 Local residential or business street as the place of occurrence of the external cause; Y99.9 Unspecified external cause status
CPT/HCPCS: 71046; 90471; 90715; 99283; 99284